=== PATIENT | male | born 1965 | race Caucasian/White ===

== ENCOUNTER 2016-10-02 17:23 | Inpatient (IN) | payer OTHER ==
[~2016-10-02] VITALS: Ht 180.3 cm; Wt 102.1 kg
[2016-10-02] VITALS (8 sets, daily range): BP systolic 106–122; BP diastolic 60–73
[2016-10-02] MEDS ORDERED: PANTOPRAZOLE IV PUSH 40 MG VIAL. IVP ONE (18:15)
[2016-10-02] MEDS ORDERED: PANTOPRAZOLE SODIUM IV 80 MG in IV NORMAL SALINE 100ML 100 ML IV SCH (18:15)
[2016-10-02] MEDS ORDERED: IV NORMAL SALINE 1000ML BAG 1,000 ML IV ONE (18:15)
[2016-10-02] MEDS ORDERED: PANTOPRAZOLE SODIUM IV 80 MG in IV NORMAL SALINE 100ML 100 ML IV ONE (18:15)
[2016-10-02 18:18] LABS: BASO # 0.1 x10^3/uL (0.0-0.2); BASO % 1 % (0-3); EOS % 4 % (0-3); HEMATOCRIT 24.5 % (39.0-53.0); HEMOGLOBIN 8.4 g/dL (13.0-17.5); LYMPH # 2.1 x10^3/uL (1.0-4.8); LYMPH % 19 % (24-48); MEAN CORPUSCULAR HEMOGLOBIN 33 pg (25-35); MEAN CORPUSCULAR HGB CONC 34 g/dL (31-37); MEAN CORPUSCULAR VOLUME 97 fL (79-100); MONO % 6 % (0-9); NEUT % 70 % (31-73); PLATELET COUNT 295 x10^3/uL (140-400); RED BLOOD COUNT 2.53 x10^6/uL (4.30-5.70); RED CELL DISTRIBUTION WIDTH 14.5 % (11.5-14.5); WHITE BLOOD COUNT 10.9 x10^3/uL (4.0-11.0)
[2016-10-02 18:33] LABS: CALCIUM 8.3 mg/dL (8.5-10.1); GFR 78.5; POTASSIUM 3.8 mmol/L (3.5-5.1)
[2016-10-02 18:34] LABS: NEG OBC FOB NEG; POS OBC FOB POS
[2016-10-02 18:39] LABS: ALBUMIN 2.1 g/dL (3.4-5.0); ALBUMIN/GLOBULIN RATIO 0.8 (1.0-1.7); TOTAL BILIRUBIN 0.8 mg/dL (0.2-1.0); TOTAL PROTEIN 4.9 g/dL (6.4-8.2)
[2016-10-02] MEDS ORDERED: ONDANSETRON PF 4 MG/2 ML VIAL. IV PRN (18:45)
--- NOTE | 2016-10-02 18:46 | PHYS DOC ---
Past Medical History Past Medical History: Kidney Stone, Seizure, Other Additional Past Medical Histor: gi bleed Past Surgical History: No Surgical History Alcohol Use: None Drug Use: None Adult General Chief Complaint Chief Complaint: LOSS OF CONSCIOUSNESS [facility] HPI 51-year-old male who presents from a correctional facility after having a full syncopal episode and falling and hitting the back of his head with a small laceration on his head. Upon my assessment, the patient has just had a very large dark bloody bowel movement. He feels very pale but no acute distress. He denies any significant chest pain or shortness of breath. He does state he has history of hepatitis but denies any history of variceal bleed. He reports very mild abdominal pain. He denies any history of stomach ulceration. He denies any recent alcohol use. Review of Systems Review of Systems Constitutional: Denies fever or chills [] Eyes: Denies change in visual acuity, redness, or eye pain [] HENT: Denies nasal congestion or sore throat [] Respiratory: Denies cough or shortness of breath [] Cardiovascular: No additional information not addressed in HPI [] GI: Denies abdominal pain, nausea, vomiting, has bloody stools, denies diarrhea [] : Denies dysuria or hematuria [] Musculoskeletal: Denies back pain or joint pain [] Integument: Denies rash or skin lesions [] Neurologic: Denies headache, focal weakness or sensory changes [] Endocrine: Denies polyuria or polydipsia [] Current Medications Current Medications Allergies Allergies Allergies Coded Allergies Type Severity Reaction Last Updated Verified No Known Drug Allergies 10/02/16 No Physical Exam Physical Exam Constitutional: Well developed, well nourished, no acute distress, non-toxic appearance. [] HENT: Normocephalic, small laceration to the occipital area that does not require any closure, no active bleeding noted, bilateral external ears normal, oropharynx moist, no oral exudates, nose normal. [] Eyes: PERRLA, EOMI, conjunctiva normal, no discharge. [] Neck: Normal range of motion, no tenderness, supple, no stridor. [] Cardiovascular:Heart rate regular rhythm, no murmur [] Lungs & Thorax: Bilateral breath sounds clear to auscultation [] Abdomen: Bowel sounds normal, soft, no tenderness, no masses, no pulsatile masses. [] Skin: Warm, dry, no erythema, no rash, pale. [] Back: No tenderness, no CVA tenderness. [] Extremities: No tenderness, no cyanosis, no clubbing, ROM intact, no edema. [] Neurologic: Alert and oriented X 3, normal motor function, normal sensory function, no focal deficits noted. [] Psychologic: Affect normal, judgement normal, mood normal. [] Current Patient Data Vital Signs Vital Signs Date Time Temp Pulse Resp B/P Pulse Ox O2 Delivery O2 Flow Rate FiO2 10/02/16 18:00 82 20 116/55 97 Room Air 10/02/16 17:25 97.9 97.9 Lab Values Laboratory Tests Test 10/02/16 17:45 10/02/16 17:46 10/02/16 18:00 White Blood Count 10.9x10^3/uL (4.0-11.0) Red Blood Count 2.53x10^6/uL (4.30-5.70) L Hemoglobin 8.4g/dL (13.0-17.5) L Hematocrit 24.5% (39.0-53.0) L Mean Corpuscular Volume 97fL (79-100) Mean Corpuscular Hemoglobin 33pg (25-35) Mean Corpuscular Hemoglobin Concent 34g/dL (31-37) Red Cell Distribution Width 14.5% (11.5-14.5) Platelet Count 295x10^3/uL (140-400) Neutrophils (%) (Auto) 70% (31-73) Lymphocytes (%) (Auto) 19% (24-48) L Monocytes (%) (Auto) 6% (0-9) Eosinophils (%) (Auto) 4% (0-3) H Basophils (%) (Auto) 1% (0-3) Neutrophils # (Auto) 7.6x10^3uL (1.8-7.7) Lymphocytes # (Auto) 2.1x10^3/uL (1.0-4.8) Monocytes # (Auto) 0.7x10^3/uL (0.0-1.1) Eosinophils # (Auto) 0.4x10^3/uL (0.0-0.7) Basophils # (Auto) 0.1x10^3/uL (0.0-0.2) Sodium Level 147mmol/L (136-145) H Potassium Level 3.8mmol/L (3.5-5.1) Chloride Level 113mmol/L (98-107) H Carbon Dioxide Level 25mmol/L (21-32) Anion Gap 9 (6-14) Blood Urea Nitrogen 34mg/dL (8-26) H Creatinine 1.0mg/dL (0.7-1.3) Estimated GFR (Cockcroft-Gault) 78.5 BUN/Creatinine Ratio 34 (6-20) H Glucose Level 148mg/dL (70-99) H Calcium Level 8.3mg/dL (8.5-10.1) L Total Bilirubin 0.8mg/dL (0.2-1.0) Aspartate Amino Transferase (AST) 35U/L (15-37) Alanine Aminotransferase (ALT) 37U/L (16-63) Alkaline Phosphatase 57U/L (46-116) Total Protein 4.9g/dL (6.4-8.2) L Albumin 2.1g/dL (3.4-5.0) L Albumin/Globulin Ratio 0.8 (1.0-1.7) L Prothrombin Time 18.3SEC (11.7-14.0) H Prothrombin Time INR 1.6 (0.8-1.1) H Stool Occult Blood Positive (NEG) Laboratory Tests 10/02/16 17:45 Laboratory Tests 10/02/16 17:45 EKG EKG EKG as interpreted by de shows a sinus rhythm with a rate of 76 bpm. There are no acute findings on this EKG. Radiology/Procedures Radiology/Procedures CT of the head without contrast demonstrates the following: No acute intracranial hemorrhage or midline shift or mass-effect or hydrocephalus or extra-axial fluid collection is seen. No focal hypodense area is seen to indicate an acute infarct or edema radiographically. No skull fracture or pneumocephalus is seen. No opacification of the mastoid sinuses or the paranasal sinuses is seen. The maxillary sinuses are not completely seen in this study. Course & Med Decision Making Course & Med Decision Making Pertinent Labs and Imaging studies reviewed. (See chart for details) This 51-year-old male with an ongoing GI bleed that was noted with a single episode just prior to arrival immediately had multiple IVs placed upon arrival. IV fluids were started and the patient was type and cross for 2 units. Protonix bolus was administered and Protonix drip was initiated. I discussed the case with the GI doctor, Dr. Herrera, who also requested we start the patient on octreotide. Octreotide bolus was given and an octreotide drip was initiated. Patient was actively transfused 1 unit in the department with multiple units still ready to be administered if needed. The patient maintained stable vital signs on the department. The rest of his laboratory workup was unremarkable. I discussed the need to admit the patient to the ICU with the hospitalist, Dr. Magaña, who agreed with this plan. Approximately 30 minutes of critical care time were used in consultation with specialists. Dragon Disclaimer Dragon Disclaimer This electronic medical record was generated, in whole or in part, using a voice recognition dictation system. Critical Care Time Critical care time was 30 minutes exclusive of procedures. Departure Departure Impression: Primary Impression: GI bleed Disposition: ADMITTED INPATIENT Admitting Physician: Desiree Magaña Condition: CRITICAL RAVINDRA YANEZ DO Oct 02, 2016 18:46
[2016-10-02] MEDS ORDERED: OCTREOTIDE 500 MCG in IV NORMAL SALINE 100ML 100 ML IV PRN (19:00)
--- NOTE | 2016-10-02 19:14 | RAD ---
PROCEDURE Noncontrast head CT HISTORY Fall. Laceration injury posteriorly. TECHNIQUE Noncontrast axial cross sectional CT scanning of the head was performed. One or more of the following individualized dose reduction techniques were utilized for this study: 1. Automated exposure control 2. Adjustment of the mA and/or kV according to patient size 3. Use of iterative reconstruction technique COMPARISON None available. FINDINGS No acute intracranial hemorrhage or midline shift or mass-effect or hydrocephalus or extra-axial fluid collection is seen. No focal hypodense area is seen to indicate an acute infarct or edema radiographically. No skull fracture or pneumocephalus is seen. No opacification of the mastoid sinuses or the paranasal sinuses is seen. The maxillary sinuses are not completely seen in this study. IMPRESSION No acute intracranial abnormality is seen. Electronically signed by: Manuel Manriquez MD (Oct 02, 2016 19:12:53)
[2016-10-02] MEDS ORDERED: OCTREOTIDE 100 MCG/ML VIAL SQ ONE (19:15)
[2016-10-02] MEDS ORDERED: DIPHTH,PERTUSS(ACELL),TET TOX 0.5 ML DISP.SYRIN. VAX IM ONE (19:15)
[2016-10-02] MEDS ORDERED: OCTREOTIDE 100 MCG/ML VIAL IV ONE (19:15)
[2016-10-02] MEDS: OCTREOTIDE 500 MCG in IV NORMAL SALINE 100ML 100 ML IV PRN (19:31)
[2016-10-02] MEDS: IV NORMAL SALINE 1000ML BAG 1,000 ML IV SCH (20:13)
--- NOTE | 2016-10-02 20:28 | PDOC1 ---
History and Physical Date of Admission Date of Admission DATE: 10/02/16 TIME: 20:25 Identification/Chief Complaint Chief Complaint syncope Source Source: Chart review, Patient History of Present Illness History of Present Illness Mr. Kaufman, is 51-year-old incarcerated male admit after syncopal episode. Fell and hit the back of his head, small laceration on his head. Patient was very pale on presentation, had a new very large dark bloody bowel movement. He feels very pale but no acute distress. He denies any significant chest pain or shortness of breath. He does state he has history of hepatitis C - no prior complications . He reports very mild abdominal pain. He denies any history of stomach ulceration. 5 years ago, before senior living, he drank 6 beers most days, sometimes more. . Past Medical History Cardiovascular: No pertinent hx Pulmonary: No pertinent hx GI: Other (hepatitis) Heme/Onc: No pertinent hx Musculoskeletal: low back pain Past Surgical History Past Surgical History: No pertinent history Family History Family History: No Significant Social History Smoke: No ALCOHOL: other Drugs: None Current Problem List Problem List Problems Medical Problems: (1) GI bleed Status: Acute Problems: Current Medications Current Medications Current Medications Sodium Chloride 1,000 ml @ 1,000 mls/hr 1X ONCE IV Last administered on 18:36; Start 10/02/16 at 18:15; Stop 10/02/16 at 19:14; Status DC Pantoprazole Sodium 80 mg/ Sodium Chloride 100 ml @ 10 mls/hr Q10H IV ; Start 10/02/16 at 18:15 Pantoprazole Sodium/Sodium Chloride (Protonix Iv/Iv Sodium Chloride 0.9% 100ml) 100 ml @ 10 mls/hr 1X ONCE IV Last administered on 10/02/16 18:29; Start at 18:15; Stop 10/03/16 at 04:14 Pantoprazole Sodium (Protonix Vial) 80 mg ONCE ONCE IVP ; Start 10/02/16 at 18: 15; Stop 10/02/16 at 18:16; Status Cancel Ondansetron HCl 4 mg 4 mg PRN Q8HRS PRN IV NAUSEA/VOMITING; Start 10/02/16 at 18:45; Stop 10/03/16 at 18:44 Sodium Chloride 1,000 ml @ 125 mls/hr Q8H IV Last administered on 10/02/16 20 :13; Start 10/02/16 at 19:00; Stop 10/03/16 at 18:59 Octreotide Acetate 500 mcg/ Sodium Chloride 101 ml @ 10.1 mls/hr CONT PRN IV SEE I/O RECORD Last administered on 10/02/16 19:31; Start 10/02/16 at 19:00 Octreotide Acetate/Sodium Chloride (Sandostatin/Iv Sodium Chloride 0.9% 100ml) 101 ml @ 0 mls/hr CONT PRN IV SEE I/O RECORD; Start 10/02/16 at 19:00; Status UNV Octreotide Acetate (Sandostatin) 100 mcg ONCE ONCE SQ ; Start 10/02/16 at 19:15 ; Stop 10/02/16 at 19:16; Status Cancel Diphtheria/ Tetanus/Acell Pertussis (Boostrix) 0.5 ml ONCE ONCE VAX IM Last administered on 10/02/16 20:17; Start 10/02/16 at 19:15; Stop 10/02/16 at 19:17 ; Status DC Octreotide Acetate (Sandostatin) 100 mcg ONCE ONCE IV Last administered on 19:30; Start 10/02/16 at 19:15; Stop 10/02/16 at 19:18; Status DC Allergies Allergies: Coded Allergies: No Known Drug Allergies (Unverified , 10/02/16) ROS General: YES: Fatigue, Malaise, No: Appetite, Chills, Night Sweats, Other PSYCHOLOGICAL ROS: No: Anxiety, Behavioral Disorder, Concentration difficultie , Decreased libido, Depression, Disorientation, Hallucinations, Hostility, Irritablity, Memory difficulties, Mood Swings, Obsessive thoughts, Other, Physical abuse, Sexual abuse, Sleep disturbances, Suicidal ideation Respiratory: No: Cough, Hemoptysis, Orthopnea, Other, Pleuritic Pain, SOB with excertion, Shortness of breath, Sputum Changes, Stridor, Tachypnea, Wheezing Cardiovascular: No Chest Pain, No Edema, No Lt Headedness, No Orthopnea, No Other, No Palpitations, No Paroxysmal Noc. Dyspnea Gastrointestinal: No Abdominal Pain, No Constipation, No Diarrhea, No Hematochezia, No Melena, No Nausea, No Other, No Vomiting Genitourinary: No , No , No , No , No , No , No , No Discharge, No Dysuria, No Flank Pain, No Frequency, No Hematuria, No Incontinence, No Other, No Pain, No Retention, No Urgency Musculoskeletal: No Gait Disturbance, No Joint Pain, No Joint Stiffness, No Joint Swelling, No Muscle Pain, No Muscular Weakness, No Other, No Pain In:, No Swelling In: Neurological: No Behavorial Changes, No Bowel/Bladder ControlChng, No Confusion , No Dizziness, No Gait Disturbance, No Headaches, No Impaired Coord/balance, No Memory Loss, No Numbness/Tingling, No Other, No Seizures, No Speech Problems , No Tremors, No Visual Changes, No Weakness Skin: No Acne, No Dry Skin, No Eczema, No Hair Changes, No Lumps, No Mole Changes, No Mottling, No Nail Changes, No Other, No Pruritus, No Rash, No Skin Lesion Changes Physical Exam General: Alert, Oriented X3, Cooperative, mild distress HEENT: Atraumatic Lungs: Clear to auscultation Heart: no murmurs Abdomen: Normal bowel sounds, Soft Rectal Exam: other (melena reported, heme+) Extremities: No clubbing, No cyanosis, No edema, Normal pulses Skin: No rashes, No breakdown Neuro: Normal speech, Normal tone, Sensation intact, Cranial nerves 3-12 NL Psych/Mental Status: Mental status NL, Mood NL Vitals Vitals Vital Signs Date Time Temp Pulse Resp B/P Pulse Ox O2 Delivery O2 Flow Rate FiO2 10/02/16 20:09 97.5 82 20 106/67 97.5 10/02/16 17:25 98 Room Air Labs Labs Laboratory Tests Test 10/02/16 17:45 10/02/16 18:00 White Blood Count 10.9x10^3/uL (4.0-11.0) Red Blood Count 2.53x10^6/uL (4.30-5.70) Hemoglobin 8.4g/dL (13.0-17.5) Hematocrit 24.5% (39.0-53.0) Mean Corpuscular Volume 97fL (79-100) Mean Corpuscular Hemoglobin 33pg (25-35) Mean Corpuscular Hemoglobin Concent 34g/dL (31-37) Red Cell Distribution Width 14.5% (11.5-14.5) Platelet Count 295x10^3/uL (140-400) Neutrophils (%) (Auto) 70% (31-73) Lymphocytes (%) (Auto) 19% (24-48) Monocytes (%) (Auto) 6% (0-9) Eosinophils (%) (Auto) 4% (0-3) Basophils (%) (Auto) 1% (0-3) Neutrophils # (Auto) 7.6x10^3uL (1.8-7.7) Lymphocytes # (Auto) 2.1x10^3/uL (1.0-4.8) Monocytes # (Auto) 0.7x10^3/uL (0.0-1.1) Eosinophils # (Auto) 0.4x10^3/uL (0.0-0.7) Basophils # (Auto) 0.1x10^3/uL (0.0-0.2) Sodium Level 147mmol/L (136-145) Potassium Level 3.8mmol/L (3.5-5.1) Chloride Level 113mmol/L (98-107) Carbon Dioxide Level 25mmol/L (21-32) Anion Gap 9 (6-14) Blood Urea Nitrogen 34mg/dL (8-26) Creatinine 1.0mg/dL (0.7-1.3) Estimated GFR (Cockcroft-Gault) 78.5 BUN/Creatinine Ratio 34 (6-20) Glucose Level 148mg/dL (70-99) Calcium Level 8.3mg/dL (8.5-10.1) Total Bilirubin 0.8mg/dL (0.2-1.0) Aspartate Amino Transf (AST/SGOT) 35U/L (15-37) Alanine Aminotransferase (ALT/SGPT) 37U/L (16-63) Alkaline Phosphatase 57U/L (46-116) Total Protein 4.9g/dL (6.4-8.2) Albumin 2.1g/dL (3.4-5.0) Albumin/Globulin Ratio 0.8 (1.0-1.7) Stool Occult Blood Positive (NEG) Laboratory Tests Test 10/02/16 17:45 10/02/16 18:00 White Blood Count 10.9x10^3/uL (4.0-11.0) Red Blood Count 2.53x10^6/uL (4.30-5.70) Hemoglobin 8.4g/dL (13.0-17.5) Hematocrit 24.5% (39.0-53.0) Mean Corpuscular Volume 97fL (79-100) Mean Corpuscular Hemoglobin 33pg (25-35) Mean Corpuscular Hemoglobin Concent 34g/dL (31-37) Red Cell Distribution Width 14.5% (11.5-14.5) Platelet Count 295x10^3/uL (140-400) Neutrophils (%) (Auto) 70% (31-73) Lymphocytes (%) (Auto) 19% (24-48) Monocytes (%) (Auto) 6% (0-9) Eosinophils (%) (Auto) 4% (0-3) Basophils (%) (Auto) 1% (0-3) Neutrophils # (Auto) 7.6x10^3uL (1.8-7.7) Lymphocytes # (Auto) 2.1x10^3/uL (1.0-4.8) Monocytes # (Auto) 0.7x10^3/uL (0.0-1.1) Eosinophils # (Auto) 0.4x10^3/uL (0.0-0.7) Basophils # (Auto) 0.1x10^3/uL (0.0-0.2) Sodium Level 147mmol/L (136-145) Potassium Level 3.8mmol/L (3.5-5.1) Chloride Level 113mmol/L (98-107) Carbon Dioxide Level 25mmol/L (21-32) Anion Gap 9 (6-14) Blood Urea Nitrogen 34mg/dL (8-26) Creatinine 1.0mg/dL (0.7-1.3) Estimated GFR (Cockcroft-Gault) 78.5 BUN/Creatinine Ratio 34 (6-20) Glucose Level 148mg/dL (70-99) Calcium Level 8.3mg/dL (8.5-10.1) Total Bilirubin 0.8mg/dL (0.2-1.0) Aspartate Amino Transf (AST/SGOT) 35U/L (15-37) Alanine Aminotransferase (ALT/SGPT) 37U/L (16-63) Alkaline Phosphatase 57U/L (46-116) Total Protein 4.9g/dL (6.4-8.2) Albumin 2.1g/dL (3.4-5.0) Albumin/Globulin Ratio 0.8 (1.0-1.7) Stool Occult Blood Positive (NEG) VTE Prophylaxis Ordered VTE Prophylaxis Devices: Yes VTE Pharmacological Prophylaxi: Contraindicated Assessment/Plan Assessment/Plan GI bleed, acute blood loss anemia Possible Upper GI bleed, melena BUN elevation PPI, octreotide, 2 u PRBC, admit to ICU Hx hep C, given SQ vit K now check INR prior EtOH abuse 6/day or more INR 1.6 VIt K given 2 SQ now mod/severe malnutrition, hypoalbumin currently incarcerated, he reports release date 6 mos full code admit to ICU pt seen in ER ALLISON JUNG MD Oct 02, 2016 20:28
[2016-10-02] MEDS ORDERED: PHYTONADIONE 10 MG/ML AMPUL. SQ ONE (20:30)
[2016-10-02 20:45] LABS: INR 1.6 (0.8-1.1); PROTHROMBIN TIME PATIENT 18.3 SEC (11.7-14.0)
[2016-10-02] MEDS ORDERED: IBUP200T77 PO (22:52)
[2016-10-02] MEDS ORDERED: TRIA1TAB3 PO (22:52)
[2016-10-03] VITALS (21 sets, daily range): BP systolic 91–115; BP diastolic 41–68
[2016-10-03 02:22] LABS: BASO # 0.1 x10^3/uL (0.0-0.2); BASO % 1 % (0-3); EOS % 2 % (0-3); HEMATOCRIT 28.8 % (39.0-53.0); HEMOGLOBIN 9.8 g/dL (13.0-17.5); LYMPH # 1.4 x10^3/uL (1.0-4.8); LYMPH % 17 % (24-48); MEAN CORPUSCULAR HEMOGLOBIN 32 pg (25-35); MEAN CORPUSCULAR HGB CONC 34 g/dL (31-37); MEAN CORPUSCULAR VOLUME 94 fL (79-100); MONO % 6 % (0-9); NEUT % 74 % (31-73); PLATELET COUNT 215 x10^3/uL (140-400); RED BLOOD COUNT 3.07 x10^6/uL (4.30-5.70); RED CELL DISTRIBUTION WIDTH 15.5 % (11.5-14.5); WHITE BLOOD COUNT 8.3 x10^3/uL (4.0-11.0)
[2016-10-03] MEDS ORDERED: INFLUENZA VAX SCREEN BY RX. MC ONE (02:45)
[2016-10-03 02:59] LABS: GFR 78.5; POTASSIUM 4.7 mmol/L (3.5-5.1)
[2016-10-03] MEDS: IV NORMAL SALINE 1000ML BAG 1,000 ML IV SCH (03:00)
--- NOTE | 2016-10-03 07:47 | EKG ---
[facility] [address] [place] [address] Test Date: 2016-10-02 Test Time: 17:36:22 Pat Name: BLU LUIS Department: Room: Gender: M Bunch Maker: : 1965 Requested By: RAVINDRA YANEZ Order Number: [id number] Reading MD: Measurements Intervals [place] Rate: 76 P: 42 OK: 134 QRS: 16 QRSD: 80 T: 34 QT: 416 QTc: 473 Interpretive Statements SINUS RHYTHM NORMAL ECG RI6.01 No previous ECG available for comparison
[2016-10-03 08:27] LABS: HEMATOCRIT 25.5 % (39.0-53.0)
[2016-10-03] MEDS ORDERED: FLU VACC QUAD 2016-17 (36MOS+)/PF 0.5 ML SYRINGE. VAX IM ONE (09:00)
--- NOTE | 2016-10-03 09:37 | PDOC2 ---
GI CONSULT Reason For Consult: GI Bleed HPI: HPI: 51 y/o male from correctional facility brought to ER after syncopal episode where he fell and hit the back of his head. Noted to be pale, had large dark bloody stool in ER. Labs: Hgb 8.4 (to 9.8 s/p transfusion 2 units, now 9), plt 215, INR 1.6, BUN 34, Cr 1, hemoccult positive. Head CT unrevealing. Some hypotension. Reports h/o dark ("black") stools x 2 days. No abd pain, no n/v. Did have some CP w/ SOA and sweats a couple nights ago. No dizziness. H/o heartburn that hasn't been bothersome in awhile. Previous colonoscopy reportedly showed polyps in 2014. No previous EGD. Has been taking either ibuprofen or Tylenol for back pain - 3 pills BID for about 5 days. Additional h/o Hep C. Per RN, reports of black tarry stools x 2 overnight in ICU, no bleeding this a.m. On octreotide and PPI drip. PMH: PMH: Hep C, colon polyp, back pain, nephrolithiasis FH: Family History: Cancer (aunt had liver cancer) Social History: Smoke: No ALCOHOL: other (in the past) Drugs: Crystal meth (in the past) ROS: GEN: Denies fevers, chills, sweats HEENT: Denies blurred vision, sore throat CV: chest pain a few nights ago RESP: SOA a few nights ago GI: Per HPI : Denies hematuria, dysuria ENDO: Denies weight changes NEURO: syncope MSK:back pain, abrasion back of head SKIN: Denies jaundice, pruritus VItals: Vitals: Vital Signs Date Time Temp Pulse Resp B/P Pulse Ox O2 Delivery O2 Flow Rate FiO2 10/03/16 08:00 98.0 74 9 99/54 98 Room Air 98.0 Labs: Labs: Laboratory Tests Test 10/02/16 17:45 10/02/16 17:46 10/02/16 18:00 10/03/16 01:58 White Blood Count 10.9x10^3/uL (4.0-11.0) 8.3x10^3/uL (4.0-11.0) Red Blood Count 2.53x10^6/uL (4.30-5.70) 3.07x10^6/uL (4.30-5.70) Hemoglobin 8.4g/dL (13.0-17.5) 9.8g/dL (13.0-17.5) Hematocrit 24.5% (39.0-53.0) 28.8% (39.0-53.0) Mean Corpuscular Volume 97fL (79-100) 94fL (79-100) Mean Corpuscular Hemoglobin 33pg (25-35) 32pg (25-35) Mean Corpuscular Hemoglobin Concent 34g/dL (31-37) 34g/dL (31-37) Red Cell Distribution Width 14.5% (11.5-14.5) 15.5% (11.5-14.5) Platelet Count 295x10^3/uL (140-400) 215x10^3/uL (140-400) Neutrophils (%) (Auto) 70% (31-73) 74% (31-73) Lymphocytes (%) (Auto) 19% (24-48) 17% (24-48) Monocytes (%) (Auto) 6% (0-9) 6% (0-9) Eosinophils (%) (Auto) 4% (0-3) 2% (0-3) Basophils (%) (Auto) 1% (0-3) 1% (0-3) Neutrophils # (Auto) 7.6x10^3uL (1.8-7.7) 6.1x10^3uL (1.8-7.7) Lymphocytes # (Auto) 2.1x10^3/uL (1.0-4.8) 1.4x10^3/uL (1.0-4.8) Monocytes # (Auto) 0.7x10^3/uL (0.0-1.1) 0.5x10^3/uL (0.0-1.1) Eosinophils # (Auto) 0.4x10^3/uL (0.0-0.7) 0.2x10^3/uL (0.0-0.7) Basophils # (Auto) 0.1x10^3/uL (0.0-0.2) 0.1x10^3/uL (0.0-0.2) Sodium Level 147mmol/L (136-145) 144mmol/L (136-145) Potassium Level 3.8mmol/L (3.5-5.1) 4.7mmol/L (3.5-5.1) Chloride Level 113mmol/L (98-107) 115mmol/L (98-107) Carbon Dioxide Level 25mmol/L (21-32) 23mmol/L (21-32) Anion Gap 9 (6-14) 6 (6-14) Blood Urea Nitrogen 34mg/dL (8-26) 34mg/dL (8-26) Creatinine 1.0mg/dL (0.7-1.3) 1.0mg/dL (0.7-1.3) Estimated GFR (Cockcroft-Gault) 78.5 78.5 BUN/Creatinine Ratio 34 (6-20) Glucose Level 148mg/dL (70-99) 118mg/dL (70-99) Calcium Level 8.3mg/dL (8.5-10.1) 8.0mg/dL (8.5-10.1) Total Bilirubin 0.8mg/dL (0.2-1.0) Aspartate Amino Transf (AST/SGOT) 35U/L (15-37) Alanine Aminotransferase (ALT/SGPT) 37U/L (16-63) Alkaline Phosphatase 57U/L (46-116) Total Protein 4.9g/dL (6.4-8.2) Albumin 2.1g/dL (3.4-5.0) Albumin/Globulin Ratio 0.8 (1.0-1.7) Prothrombin Time 18.3SEC (11.7-14.0) Prothromb Time International Ratio 1.6 (0.8-1.1) Stool Occult Blood Positive (NEG) Test 10/03/16 08:10 Hemoglobin 9.0g/dL (13.0-17.5) Hematocrit 25.5% (39.0-53.0) Mean Corpuscular Hemoglobin Concent 35g/dL (31-37) Allergies: Coded Allergies: No Known Drug Allergies (Unverified , 10/02/16) Medications: Current Medications Medications (Trade) Dose Ordered Sig/Katarzyna Route PRN Reason Start Time Stop Time Status Last Admin Dose Admin Sodium Chloride 1,000 ml @ 1,000 mls/hr 1X ONCE IV 10/02/16 18:15 10/02/16 19:14 DC 10/02/16 18:36 Pantoprazole Sodium 80 mg/ Sodium Chloride 100 ml @ 10 mls/hr Q10H IV 10/02/16 18:15 10/03/16 04:08 Pantoprazole Sodium 80 mg/ Sodium Chloride 100 ml @ 10 mls/hr 1X ONCE IV 10/02/16 18:15 10/03/16 04:14 DC 10/02/16 18:29 Sodium Chloride 1,000 ml @ 125 mls/hr Q8H IV 10/02/16 19:00 10/03/16 18:59 10/02/16 20:13 Octreotide Acetate/Sodium Chloride (Sandostatin/Iv Sodium Chloride 0.9% 100ml) 101 ml @ 10.1 mls/hr CONT PRN IV SEE I/O RECORD 10/02/16 19:00 10/02/16 19:31 Diphtheria/ Tetanus/Acell Pertussis (Boostrix) 0.5 ml ONCE ONCE VAX IM 10/02/16 19:15 10/02/16 19:17 DC 10/02/16 20:17 Octreotide Acetate (Sandostatin) 100 mcg ONCE ONCE IV 10/02/16 19:15 10/02/16 19:18 DC 10/02/16 19:30 Phytonadione (Vitamin K) 2 mg 1X ONCE SQ 10/02/16 20:30 10/02/16 20:31 DC 10/02/16 20:30 Imaging: Imaging: Head CT IMPRESSION No acute intracranial abnormality is seen. PE: GEN: NAD HEENT: PERRL LUNGS: CTAB anteriorly HEART: RRR +murm ABD: NABS, S/ND/NT EXTREMITY: No edema SKIN: small abrasion back of head NEURO/PSYCH: A & O 3 A/P: A/P: Melena, anemia -onset 2 days ago, dark blood/black tarry stools per staff -Hgb now 9 s/p transfusion 2 units -on octreotide and PPI drip Syncope Hep C -LFTs WNL H/o heartburn -no longer bothersome, no previous EGD CRC screen, h/o polyps -colonoscopy 2014 ?NSAID use -recently for back pain -- EGD later this morning r/o upper GI source including varices, PUD. Continue NPO, octreotide, PPI til then. D/w pt, Dr. Herrera, GI lab. LEONA MANCUSO Oct 03, 2016 09:37
[2016-10-03] MEDS ORDERED: IV RINGERS,LACTATED 1000ML 1,000 ML IV SCH ×2 (13:34→13:45)
--- NOTE | 2016-10-03 13:52 | PDOC ---
PROGRESS NOTES Chief Complaint Chief Complaint syncope, 2/2 hypovolemia likely GI bleed, acute blood loss anemia, likely UGIB FROM fdc Hx hep C mod/severe malnutrition GERD plan: GI consulted egd today on protonix and octreotide drip for now npo got 2u PRBC transfusion on 10/02 ivf labs tmr History of Present Illness History of Present Illness got 2u PRBC, now HB still low at 9 EGD today Vitals Vitals Vital Signs Date Time Temp Pulse Resp B/P Pulse Ox O2 Delivery O2 Flow Rate FiO2 10/03/16 13:40 99.3 71 18 100 99.3 10/03/16 13:40 Room Air 10/03/16 12:00 108/58 Physical Exam General: Alert, Oriented X3, Cooperative, mild distress Heart: Regular rate Lungs: Clear Abdomen: Normal bowel sounds, Soft, No tenderness Extremities: No clubbing, No cyanosis, No edema, Normal pulses Skin: No rashes, No breakdown Labs LABS Laboratory Tests Test 10/02/16 17:45 10/02/16 17:46 10/02/16 18:00 10/03/16 01:58 White Blood Count 10.9x10^3/uL (4.0-11.0) 8.3x10^3/uL (4.0-11.0) Red Blood Count 2.53x10^6/uL (4.30-5.70) 3.07x10^6/uL (4.30-5.70) Hemoglobin 8.4g/dL (13.0-17.5) 9.8g/dL (13.0-17.5) Hematocrit 24.5% (39.0-53.0) 28.8% (39.0-53.0) Mean Corpuscular Volume 97fL (79-100) 94fL (79-100) Mean Corpuscular Hemoglobin 33pg (25-35) 32pg (25-35) Mean Corpuscular Hemoglobin Concent 34g/dL (31-37) 34g/dL (31-37) Red Cell Distribution Width 14.5% (11.5-14.5) 15.5% (11.5-14.5) Platelet Count 295x10^3/uL (140-400) 215x10^3/uL (140-400) Neutrophils (%) (Auto) 70% (31-73) 74% (31-73) Lymphocytes (%) (Auto) 19% (24-48) 17% (24-48) Monocytes (%) (Auto) 6% (0-9) 6% (0-9) Eosinophils (%) (Auto) 4% (0-3) 2% (0-3) Basophils (%) (Auto) 1% (0-3) 1% (0-3) Neutrophils # (Auto) 7.6x10^3uL (1.8-7.7) 6.1x10^3uL (1.8-7.7) Lymphocytes # (Auto) 2.1x10^3/uL (1.0-4.8) 1.4x10^3/uL (1.0-4.8) Monocytes # (Auto) 0.7x10^3/uL (0.0-1.1) 0.5x10^3/uL (0.0-1.1) Eosinophils # (Auto) 0.4x10^3/uL (0.0-0.7) 0.2x10^3/uL (0.0-0.7) Basophils # (Auto) 0.1x10^3/uL (0.0-0.2) 0.1x10^3/uL (0.0-0.2) Sodium Level 147mmol/L (136-145) 144mmol/L (136-145) Potassium Level 3.8mmol/L (3.5-5.1) 4.7mmol/L (3.5-5.1) Chloride Level 113mmol/L (98-107) 115mmol/L (98-107) Carbon Dioxide Level 25mmol/L (21-32) 23mmol/L (21-32) Anion Gap 9 (6-14) 6 (6-14) Blood Urea Nitrogen 34mg/dL (8-26) 34mg/dL (8-26) Creatinine 1.0mg/dL (0.7-1.3) 1.0mg/dL (0.7-1.3) Estimated GFR (Cockcroft-Gault) 78.5 78.5 BUN/Creatinine Ratio 34 (6-20) Glucose Level 148mg/dL (70-99) 118mg/dL (70-99) Calcium Level 8.3mg/dL (8.5-10.1) 8.0mg/dL (8.5-10.1) Total Bilirubin 0.8mg/dL (0.2-1.0) Aspartate Amino Transf (AST/SGOT) 35U/L (15-37) Alanine Aminotransferase (ALT/SGPT) 37U/L (16-63) Alkaline Phosphatase 57U/L (46-116) Total Protein 4.9g/dL (6.4-8.2) Albumin 2.1g/dL (3.4-5.0) Albumin/Globulin Ratio 0.8 (1.0-1.7) Prothrombin Time 18.3SEC (11.7-14.0) Prothromb Time International Ratio 1.6 (0.8-1.1) Stool Occult Blood Positive (NEG) Test 10/03/16 08:10 Hemoglobin 9.0g/dL (13.0-17.5) Hematocrit 25.5% (39.0-53.0) Mean Corpuscular Hemoglobin Concent 35g/dL (31-37) Review of Systems Review of Systems no fever, chills, sob or chest pain Assessment and Plan Assessmemt and Plan Problems Medical Problems: (1) GI bleed Status: Acute Problems: Comment Review of Relevant I have reviewed the following items telma (where applicable) has been applied. Labs Laboratory Tests Test 10/02/16 17:45 10/02/16 17:46 10/02/16 18:00 10/03/16 01:58 White Blood Count 10.9x10^3/uL (4.0-11.0) 8.3x10^3/uL (4.0-11.0) Red Blood Count 2.53x10^6/uL (4.30-5.70) 3.07x10^6/uL (4.30-5.70) Hemoglobin 8.4g/dL (13.0-17.5) 9.8g/dL (13.0-17.5) Hematocrit 24.5% (39.0-53.0) 28.8% (39.0-53.0) Mean Corpuscular Volume 97fL (79-100) 94fL (79-100) Mean Corpuscular Hemoglobin 33pg (25-35) 32pg (25-35) Mean Corpuscular Hemoglobin Concent 34g/dL (31-37) 34g/dL (31-37) Red Cell Distribution Width 14.5% (11.5-14.5) 15.5% (11.5-14.5) Platelet Count 295x10^3/uL (140-400) 215x10^3/uL (140-400) Neutrophils (%) (Auto) 70% (31-73) 74% (31-73) Lymphocytes (%) (Auto) 19% (24-48) 17% (24-48) Monocytes (%) (Auto) 6% (0-9) 6% (0-9) Eosinophils (%) (Auto) 4% (0-3) 2% (0-3) Basophils (%) (Auto) 1% (0-3) 1% (0-3) Neutrophils # (Auto) 7.6x10^3uL (1.8-7.7) 6.1x10^3uL (1.8-7.7) Lymphocytes # (Auto) 2.1x10^3/uL (1.0-4.8) 1.4x10^3/uL (1.0-4.8) Monocytes # (Auto) 0.7x10^3/uL (0.0-1.1) 0.5x10^3/uL (0.0-1.1) Eosinophils # (Auto) 0.4x10^3/uL (0.0-0.7) 0.2x10^3/uL (0.0-0.7) Basophils # (Auto) 0.1x10^3/uL (0.0-0.2) 0.1x10^3/uL (0.0-0.2) Sodium Level 147mmol/L (136-145) 144mmol/L (136-145) Potassium Level 3.8mmol/L (3.5-5.1) 4.7mmol/L (3.5-5.1) Chloride Level 113mmol/L (98-107) 115mmol/L (98-107) Carbon Dioxide Level 25mmol/L (21-32) 23mmol/L (21-32) Anion Gap 9 (6-14) 6 (6-14) Blood Urea Nitrogen 34mg/dL (8-26) 34mg/dL (8-26) Creatinine 1.0mg/dL (0.7-1.3) 1.0mg/dL (0.7-1.3) Estimated GFR (Cockcroft-Gault) 78.5 78.5 BUN/Creatinine Ratio 34 (6-20) Glucose Level 148mg/dL (70-99) 118mg/dL (70-99) Calcium Level 8.3mg/dL (8.5-10.1) 8.0mg/dL (8.5-10.1) Total Bilirubin 0.8mg/dL (0.2-1.0) Aspartate Amino Transf (AST/SGOT) 35U/L (15-37) Alanine Aminotransferase (ALT/SGPT) 37U/L (16-63) Alkaline Phosphatase 57U/L (46-116) Total Protein 4.9g/dL (6.4-8.2) Albumin 2.1g/dL (3.4-5.0) Albumin/Globulin Ratio 0.8 (1.0-1.7) Prothrombin Time 18.3SEC (11.7-14.0) Prothromb Time International Ratio 1.6 (0.8-1.1) Stool Occult Blood Positive (NEG) Test 10/03/16 08:10 Hemoglobin 9.0g/dL (13.0-17.5) Hematocrit 25.5% (39.0-53.0) Mean Corpuscular Hemoglobin Concent 35g/dL (31-37) Laboratory Tests Test 10/02/16 17:45 10/02/16 17:46 10/02/16 18:00 10/03/16 01:58 White Blood Count 10.9x10^3/uL (4.0-11.0) 8.3x10^3/uL (4.0-11.0) Red Blood Count 2.53x10^6/uL (4.30-5.70) 3.07x10^6/uL (4.30-5.70) Hemoglobin 8.4g/dL (13.0-17.5) 9.8g/dL (13.0-17.5) Hematocrit 24.5% (39.0-53.0) 28.8% (39.0-53.0) Mean Corpuscular Volume 97fL (79-100) 94fL (79-100) Mean Corpuscular Hemoglobin 33pg (25-35) 32pg (25-35) Mean Corpuscular Hemoglobin Concent 34g/dL (31-37) 34g/dL (31-37) Red Cell Distribution Width 14.5% (11.5-14.5) 15.5% (11.5-14.5) Platelet Count 295x10^3/uL (140-400) 215x10^3/uL (140-400) Neutrophils (%) (Auto) 70% (31-73) 74% (31-73) Lymphocytes (%) (Auto) 19% (24-48) 17% (24-48) Monocytes (%) (Auto) 6% (0-9) 6% (0-9) Eosinophils (%) (Auto) 4% (0-3) 2% (0-3) Basophils (%) (Auto) 1% (0-3) 1% (0-3) Neutrophils # (Auto) 7.6x10^3uL (1.8-7.7) 6.1x10^3uL (1.8-7.7) Lymphocytes # (Auto) 2.1x10^3/uL (1.0-4.8) 1.4x10^3/uL (1.0-4.8) Monocytes # (Auto) 0.7x10^3/uL (0.0-1.1) 0.5x10^3/uL (0.0-1.1) Eosinophils # (Auto) 0.4x10^3/uL (0.0-0.7) 0.2x10^3/uL (0.0-0.7) Basophils # (Auto) 0.1x10^3/uL (0.0-0.2) 0.1x10^3/uL (0.0-0.2) Sodium Level 147mmol/L (136-145) 144mmol/L (136-145) Potassium Level 3.8mmol/L (3.5-5.1) 4.7mmol/L (3.5-5.1) Chloride Level 113mmol/L (98-107) 115mmol/L (98-107) Carbon Dioxide Level 25mmol/L (21-32) 23mmol/L (21-32) Anion Gap 9 (6-14) 6 (6-14) Blood Urea Nitrogen 34mg/dL (8-26) 34mg/dL (8-26) Creatinine 1.0mg/dL (0.7-1.3) 1.0mg/dL (0.7-1.3) Estimated GFR (Cockcroft-Gault) 78.5 78.5 BUN/Creatinine Ratio 34 (6-20) Glucose Level 148mg/dL (70-99) 118mg/dL (70-99) Calcium Level 8.3mg/dL (8.5-10.1) 8.0mg/dL (8.5-10.1) Total Bilirubin 0.8mg/dL (0.2-1.0) Aspartate Amino Transf (AST/SGOT) 35U/L (15-37) Alanine Aminotransferase (ALT/SGPT) 37U/L (16-63) Alkaline Phosphatase 57U/L (46-116) Total Protein 4.9g/dL (6.4-8.2) Albumin 2.1g/dL (3.4-5.0) Albumin/Globulin Ratio 0.8 (1.0-1.7) Prothrombin Time 18.3SEC (11.7-14.0) Prothromb Time International Ratio 1.6 (0.8-1.1) Stool Occult Blood Positive (NEG) Test 10/03/16 08:10 Hemoglobin 9.0g/dL (13.0-17.5) Hematocrit 25.5% (39.0-53.0) Mean Corpuscular Hemoglobin Concent 35g/dL (31-37) Medications Current Medications Sodium Chloride 1,000 ml @ 1,000 mls/hr 1X ONCE IV Last administered on 18:36; Start 10/02/16 at 18:15; Stop 10/02/16 at 19:14; Status DC Pantoprazole Sodium 80 mg/ Sodium Chloride 100 ml @ 10 mls/hr Q10H IV Last administered on 10/03/16 04:08; Start 10/02/16 at 18:15 Pantoprazole Sodium/Sodium Chloride (Protonix Iv/Iv Sodium Chloride 0.9% 100ml) 100 ml @ 10 mls/hr 1X ONCE IV Last administered on 10/02/16 18:29; Start at 18:15; Stop 10/03/16 at 04:14; Status DC Pantoprazole Sodium (Protonix Vial) 80 mg ONCE ONCE IVP ; Start 10/02/16 at 18: 15; Stop 10/02/16 at 18:16; Status Cancel Ondansetron HCl 4 mg 4 mg PRN Q8HRS PRN IV NAUSEA/VOMITING; Start 10/02/16 at 18:45; Stop 10/03/16 at 18:44 Sodium Chloride 1,000 ml @ 125 mls/hr Q8H IV Last administered on 10/03/16 03 :00; Start 10/02/16 at 19:00; Stop 10/03/16 at 18:59 Octreotide Acetate 500 mcg/ Sodium Chloride 101 ml @ 10.1 mls/hr CONT PRN IV SEE I/O RECORD Last administered on 10/02/16 19:31; Start 10/02/16 at 19:00 Octreotide Acetate/Sodium Chloride (Sandostatin/Iv Sodium Chloride 0.9% 100ml) 101 ml @ 0 mls/hr CONT PRN IV SEE I/O RECORD; Start 10/02/16 at 19:00; Status UNV Octreotide Acetate (Sandostatin) 100 mcg ONCE ONCE SQ ; Start 10/02/16 at 19:15 ; Stop 10/02/16 at 19:16; Status Cancel Diphtheria/ Tetanus/Acell Pertussis (Boostrix) 0.5 ml ONCE ONCE VAX IM Last administered on 10/02/16 20:17; Start 10/02/16 at 19:15; Stop 10/02/16 at 19:17 ; Status DC Octreotide Acetate (Sandostatin) 100 mcg ONCE ONCE IV Last administered on 19:30; Start 10/02/16 at 19:15; Stop 10/02/16 at 19:18; Status DC Phytonadione (Vitamin K) 2 mg 1X ONCE SQ Last administered on 10/02/16 20:30 ; Start 10/02/16 at 20:30; Stop 10/02/16 at 20:31; Status DC Info (Do NOT chart on this placeholder) 1 each 1X ONCE MC ; Start 10/03/16 at 02:45; Stop 10/03/16 at 02:46; Status UNV Influenza Virus Vaccine Quadrival 0.5 ml 0.5 ml ONCE ONCE VAX IM ; Start at 09:00; Stop 10/03/16 at 09:01; Status DC Lactated Ringer's 1,000 ml @ 50 mls/hr Q20H IV Last administered on 10/03/16t 13:47; Start 10/03/16 at 13:34; Stop 10/04/16 at 01:33 Lactated Ringer's (Iv Lactated Ringers) 1,000 ml @ 0 mls/hr Q0M IV ; Start at 13:45; Status UNV Active Scripts Active Reported Ibuprofen 200 Mg Tablet 200 Mg PO PRN Q6HRS PRN Triamterene-Hctz 37.5-25 Mg Tb (Triamterene/Hydrochlorothiazid) 1 Each Tablet 1 Tab PO DAILY Vitals/I & O Vital Sign - Last 24 Hours 10/02/16 10/02/16 10/02/16 10/02/16 17:25 18:00 18:30 19:09 Temp 97.9 97.9 Pulse 96 82 76 70 Resp 18 20 18 18 B/P 99/58 116/55 111/64 111/63 Pulse Ox 98 97 97 100 O2 Delivery Room Air Room Air Room Air Room Air 10/02/16 10/02/16 10/02/16 10/02/16 19:20 19:40 20:00 20:07 Pulse 72 74 74 62 Resp 18 20 18 18 B/P 114/63 127/59 104/61 106/67 Pulse Ox 100 100 99 100 O2 Delivery Room Air Room Air Room Air Room Air 10/02/16 10/02/16 10/02/16 10/02/16 20:09 20:10 20:20 20:30 Temp 97.5 97.5 97.5 97.5 Pulse 82 78 80 78 Resp 20 18 20 20 B/P 106/67 110/58 122/65 117/56 Pulse Ox 100 99 100 O2 Delivery Room Air Room Air Room Air 10/02/16 10/02/16 10/02/16 10/02/16 20:50 21:15 21:30 21:45 Temp 97.9 97.9 Pulse 86 86 88 84 Resp 16 17 B/P 111/60 122/73 106/67 112/62 Pulse Ox 100 100 98 O2 Delivery Room Air Room Air Room Air 10/02/16 10/02/16 10/02/16 10/03/16 22:00 22:30 23:00 00:00 Temp 98.1 98.1 Pulse 84 84 82 82 Resp 18 18 16 B/P 112/63 106/69 113/68 106/62 Pulse Ox 100 100 100 98 O2 Delivery Room Air Room Air Room Air Room Air 10/03/16 10/03/16 10/03/16 10/03/16 01:00 02:00 03:00 04:00 Temp 97.8 97.8 Pulse 82 82 85 85 Resp 17 16 B/P 113/68 108/62 100/61 99/47 Pulse Ox 100 98 99 98 O2 Delivery Room Air Room Air Room Air Room Air 10/03/16 10/03/16 10/03/16 10/03/16 06:00 07:00 08:00 08:00 Temp 98.0 98.0 Pulse 79 78 74 Resp 17 15 9 B/P 104/53 91/46 99/54 Pulse Ox 99 99 98 O2 Delivery Room Air Room Air Room Air Room Air 10/03/16 10/03/16 10/03/16 10/03/16 09:00 10:00 11:00 12:00 Pulse 75 75 71 Resp 33 20 14 B/P 101/61 107/53 97/55 Pulse Ox 99 100 96 O2 Delivery Room Air Room Air Room Air Room Air 10/03/16 10/03/16 10/03/16 12:00 13:40 13:40 Temp 98.1 99.3 98.1 99.3 Pulse 75 71 Resp 21 18 B/P 108/58 Pulse Ox 96 100 O2 Delivery Room Air Room Air Intake and Output 10/02/16 10/02/16 10/03/16 15:00 23:00 07:00 Intake Total 2155 ml 172 ml Output Total 800 ml Balance 2155 ml -628 ml JARROD MOREAU MD Oct 03, 2016 13:52
[2016-10-03] MEDS ORDERED: ACETAMINOPHEN 325 MG TABLET. PO PRN (14:00)
[2016-10-03] MEDS ORDERED: ONDANSETRON PF 4 MG/2 ML VIAL. IV PRN (14:00)
[2016-10-03] MEDS ORDERED: PROPOFOL 20 ML IV ONE ×2 (14:14→14:41)
--- NOTE | 2016-10-03 14:44 | PDOC4 ---
Operative Note Operative Note EGD with band ligation Meds propofol per anesthesia Pre-op dx acute blood loss anemia/melena Post-op dx small gastric ulcer s/p bx non-bleeding gastric varices esophageal varices with red wheal sign S/p band ligation x [address] scan abd/pelvis continue sandostatin drip until am/stop PPi drip npo until am serial cbcs TIPS and/or gastric varices glue sclerotherapy at [facility] as o/p RAVINDRA GREY MD Oct 03, 2016 14:44
[2016-10-03] MEDS ORDERED: IOHEXOL 240 MG/ML 50ML VIAL. PO ONE (15:15)
[2016-10-03] MEDS ORDERED: MORPHINE SULFATE 4 MG/ML DISP.SYRIN. IV PRN (15:15)
[2016-10-03] MEDS ORDERED: IOHEXOL 300 MG/ML 75 ML VIAL IV ONE (15:15)
[2016-10-03] MEDS ORDERED: CONTRAST GIVEN MC PRN (15:15)
[2016-10-03] MEDS: OCTREOTIDE 500 MCG in IV NORMAL SALINE 100ML 100 ML IV PRN (15:32)
[2016-10-03] MEDS: MORPHINE SULFATE 2 MG/ML DISP.SYRIN. IV PRN ×2 (15:32→20:46)
[2016-10-03] MEDS: IV 1/2 NORMAL SALINE 1,000 ML IV SCH (15:33)
[2016-10-03 16:17] LABS: HEMATOCRIT 26.9 % (39.0-53.0); HEMOGLOBIN 9.1 g/dL (13.0-17.5); RED BLOOD COUNT 2.82 x10^6/uL (4.30-5.70); RED CELL DISTRIBUTION WIDTH 16.4 % (11.5-14.5); WHITE BLOOD COUNT 5.2 x10^3/uL (4.0-11.0)
[2016-10-04] VITALS (14 sets, daily range): BP systolic 81–114; BP diastolic 44–69
[2016-10-04 00:45] LABS: HEMATOCRIT 25.2 % (39.0-53.0); HEMOGLOBIN 8.4 g/dL (13.0-17.5); RED BLOOD COUNT 2.65 x10^6/uL (4.30-5.70); RED CELL DISTRIBUTION WIDTH 16.5 % (11.5-14.5); WHITE BLOOD COUNT 3.8 x10^3/uL (4.0-11.0)
[2016-10-04 02:15] LABS: HEP A IGM ABDY Negative (Negative)
[2016-10-04] MEDS: MORPHINE SULFATE 2 MG/ML DISP.SYRIN. IV PRN ×2 (02:59→11:08)
[2016-10-04] MEDS: IV 1/2 NORMAL SALINE 1,000 ML IV SCH (03:03)
[2016-10-04] MEDS: OCTREOTIDE 500 MCG in IV NORMAL SALINE 100ML 100 ML IV PRN (04:32)
[2016-10-04 05:23] LABS: CALCIUM 7.5 mg/dL (8.5-10.1); CREATININE 0.9 mg/dL (0.7-1.3); GFR 88.6; POTASSIUM 3.7 mmol/L (3.5-5.1)
[2016-10-04 07:53] LABS: BASO # 0.1 x10^3/uL (0.0-0.2); BASO % 2 % (0-3); EOS % 4 % (0-3); HEMOGLOBIN 9.2 g/dL (13.0-17.5); LYMPH # 1.2 x10^3/uL (1.0-4.8); LYMPH % 29 % (24-48); MEAN CORPUSCULAR HEMOGLOBIN 33 pg (25-35); MEAN CORPUSCULAR HGB CONC 34 g/dL (31-37); MEAN CORPUSCULAR VOLUME 96 fL (79-100); MONO % 6 % (0-9); NEUT % 59 % (31-73); PLATELET COUNT 157 x10^3/uL (140-400); RED BLOOD COUNT 2.81 x10^6/uL (4.30-5.70); WHITE BLOOD COUNT 4.1 x10^3/uL (4.0-11.0)
--- NOTE | 2016-10-04 09:30 | RAD ---
INDICATION: Nausea and vomiting COMPARISON: None. TECHNIQUE: Axial CT images were obtained through the abdomen and pelvis with intravenous contrast. Coronal reformations were processed. FINDINGS: Abdomen: Linear opacity right lower lung. Could be atelectasis or scarring. Multiple gastroesophageal varices. There may also be some mild prominent lymph nodes adjacent to distal esophagus. Moderate calcific atherosclerosis. Cirrhotic liver morphology. Gallstone. No peripancreatic edema. There are some mildly enlarged Lymph nodes adjacent to liver. Spleen is enlarged with calcified granulomas. Probable splenorenal shunt. No hydronephrosis. Multiple nonobstructive renal stones, right greater than left. Left fat-containing inguinal hernia. The appendix does not appear grossly inflamed. Trace edema adjacent to the proximal colon No dilated loops of bowel to suggest obstruction. Degenerative changes spine. Sclerotic focus left femoral head. IMPRESSION: 1. Cirrhotic liver morphology with splenomegaly. This can be seen with portal hypertension. 2. Gastroesophageal varices and large collateral vessels in the upper abdomen. 3. Nonobstructive renal stones. 4. Gallstone. 5. Trace edema adjacent to proximal colon. Could be related to the patient's liver disease but if there is pain in the region early colitis is possible. 6. Sclerotic lesion left femoral head. Most commonly bone island unless the patient has history of neoplasm. PQRS Compliance Statement: One or more of the following individualized dose reduction techniques were utilized for this examination: 1. Automated exposure control 2. Adjustment of the mA and/or kV according to patient size 3. Use of iterative reconstruction technique
--- NOTE | 2016-10-04 10:16 | PDOC ---
Subjective: Subjective: Per pt - feeling okay, wants to eat. Some abd pain. No bleeding. Objective: Objective: Per RN - wants something to eat, no further bleeding. Vital Signs: Vital Signs Date Time Temp Pulse Resp B/P Pulse Ox O2 Delivery O2 Flow Rate FiO2 10/04/16 09:00 63 15 114/63 100 Room Air 10/04/16 08:00 97.6 97.6 10/04/16 03:29 2.0 Labs: Laboratory Tests Test 10/03/16 16:00 10/03/16 16:05 10/04/16 00:30 10/04/16 07:40 White Blood Count 5.2x10^3/uL 3.8x10^3/uL 4.1x10^3/uL Red Blood Count 2.82x10^6/uL 2.65x10^6/uL 2.81x10^6/uL Hemoglobin 9.1g/dL 8.4g/dL 9.2g/dL Hematocrit 26.9% 25.2% 27.0% Mean Corpuscular Volume 95fL 95fL 96fL Mean Corpuscular Hemoglobin 32pg 32pg 33pg Mean Corpuscular Hemoglobin Concent 34g/dL 34g/dL 34g/dL Red Cell Distribution Width 16.4% 16.5% 17.0% Platelet Count 142x10^3/uL 144x10^3/uL 157x10^3/uL Hepatitis A IgM Antibody Negative Hepatitis B Surface Antigen Negative Hepatitis B Core IgM Antibody Negative Hepatitis C Antibody >11.0s/co ratio Sodium Level 146mmol/L Potassium Level 3.7mmol/L Chloride Level 114mmol/L Carbon Dioxide Level 24mmol/L Anion Gap 8 Blood Urea Nitrogen 29mg/dL Creatinine 0.9mg/dL Estimated GFR (Cockcroft-Gault) 88.6 Glucose Level 90mg/dL Calcium Level 7.5mg/dL Neutrophils (%) (Auto) 59% Lymphocytes (%) (Auto) 29% Monocytes (%) (Auto) 6% Eosinophils (%) (Auto) 4% Basophils (%) (Auto) 2% Neutrophils # (Auto) 2.4x10^3uL Lymphocytes # (Auto) 1.2x10^3/uL Monocytes # (Auto) 0.2x10^3/uL Eosinophils # (Auto) 0.2x10^3/uL Basophils # (Auto) 0.1x10^3/uL Imaging: EGD 10/03/16: esophageal varices with red wheal sign s/p band ligation x 5 recs: TIPS and/or gastric varices glue sclerotherapy at [facility] as o/p CT A/P w/ oral and IV contrast 10/04/16 IMPRESSION: 1. Cirrhotic liver morphology with splenomegaly. This can be seen with portal hypertension. 2. Gastroesophageal varices and large collateral vessels in the upper abdomen. 3. Nonobstructive renal stones. 4. Gallstone. 5. Trace edema adjacent to proximal colon. Could be related to the patient's liver disease but if there is pain in the region early colitis is possible. 6. Sclerotic lesion left femoral head. Most commonly bone island unless the patient has history of neoplasm. PE: GEN: NAD LUNGS: CTAB HEART: RRR ABD: BS+, RUQ tenderness w/ deep palpation, hepatomegaly/firm liver NEURO/PSYCH: A & O 3 A/P: Hep C cirrhosis w/ esophageal, gastric varices -s/p EGD w/ banding 10/04 -confirmed w/ Hep panel -CT as above Melena - resolved Anemia -Hgb improving, s/p transfusion RUQ pain -- D/w Dr. Herrera, RN. Okay for clears, transfer out of ICU. Will also stop octreotide. LEONA MANCUSO Oct 04, 2016 10:16
--- NOTE | 2016-10-04 13:19 | PDOC ---
PROGRESS NOTES Chief Complaint Chief Complaint syncope, 2/2 hypovolemia likely GI bleed, acute blood loss anemia, 2/2 varices bleeding/gastric ulcer likely, s /p eso varices banding 10/03 FROM detention Hx hep C mod/severe malnutrition GERD esophageal/gastric varices, gastric ulcer non bleeding plan: GI consulted egd done on protonix and octreotide drip for now clear liquid diet got 2u PRBC transfusion on 10/02 ivf labs tmr abd ct as per GI History of Present Illness History of Present Illness got 2u PRBC, now HB still low at 9 EGD 10/03 with varices banding no further gib + abd pain Vitals Vitals Vital Signs Date Time Temp Pulse Resp B/P Pulse Ox O2 Delivery O2 Flow Rate FiO2 10/04/16 12:00 98.1 64 12 81/44 98 Room Air 98.1 10/04/16 11:38 2.0 Physical Exam General: Alert, Oriented X3, Cooperative, mild distress Heart: Regular rate Lungs: Clear Abdomen: Normal bowel sounds, Soft, Other (middle abd tenderness) Extremities: No clubbing, No cyanosis, No edema, Normal pulses Skin: No rashes, No breakdown Labs LABS Laboratory Tests Test 10/03/16 16:00 10/03/16 16:05 10/04/16 00:30 10/04/16 07:40 White Blood Count 5.2x10^3/uL (4.0-11.0) 3.8x10^3/uL (4.0-11.0) 4.1x10^3/uL (4.0-11.0) Red Blood Count 2.82x10^6/uL (4.30-5.70) 2.65x10^6/uL (4.30-5.70) 2.81x10^6/uL (4.30-5.70) Hemoglobin 9.1g/dL (13.0-17.5) 8.4g/dL (13.0-17.5) 9.2g/dL (13.0-17.5) Hematocrit 26.9% (39.0-53.0) 25.2% (39.0-53.0) 27.0% (39.0-53.0) Mean Corpuscular Volume 95fL (79-100) 95fL (79-100) 96fL (79-100) Mean Corpuscular Hemoglobin 32pg (25-35) 32pg (25-35) 33pg (25-35) Mean Corpuscular Hemoglobin Concent 34g/dL (31-37) 34g/dL (31-37) 34g/dL (31-37) Red Cell Distribution Width 16.4% (11.5-14.5) 16.5% (11.5-14.5) 17.0% (11.5-14.5) Platelet Count 142x10^3/uL (140-400) 144x10^3/uL (140-400) 157x10^3/uL (140-400) Hepatitis A IgM Antibody Negative (Negative) Hepatitis B Surface Antigen Negative (Negative) Hepatitis B Core IgM Antibody Negative (Negative) Hepatitis C Antibody >11.0s/co ratio Sodium Level 146mmol/L (136-145) Potassium Level 3.7mmol/L (3.5-5.1) Chloride Level 114mmol/L (98-107) Carbon Dioxide Level 24mmol/L (21-32) Anion Gap 8 (6-14) Blood Urea Nitrogen 29mg/dL (8-26) Creatinine 0.9mg/dL (0.7-1.3) Estimated GFR (Cockcroft-Gault) 88.6 Glucose Level 90mg/dL (70-99) Calcium Level 7.5mg/dL (8.5-10.1) Neutrophils (%) (Auto) 59% (31-73) Lymphocytes (%) (Auto) 29% (24-48) Monocytes (%) (Auto) 6% (0-9) Eosinophils (%) (Auto) 4% (0-3) Basophils (%) (Auto) 2% (0-3) Neutrophils # (Auto) 2.4x10^3uL (1.8-7.7) Lymphocytes # (Auto) 1.2x10^3/uL (1.0-4.8) Monocytes # (Auto) 0.2x10^3/uL (0.0-1.1) Eosinophils # (Auto) 0.2x10^3/uL (0.0-0.7) Basophils # (Auto) 0.1x10^3/uL (0.0-0.2) Review of Systems Review of Systems no fever, chills, sob or chest pain Assessment and Plan Assessmemt and Plan Problems Medical Problems: (1) GI bleed Status: Acute Problems: Comment Review of Relevant I have reviewed the following items telma (where applicable) has been applied. Labs Laboratory Tests Test 10/02/16 17:45 10/02/16 17:46 10/02/16 18:00 10/03/16 00:01 White Blood Count 10.9x10^3/uL (4.0-11.0) Red Blood Count 2.53x10^6/uL (4.30-5.70) Hemoglobin 8.4g/dL (13.0-17.5) Hematocrit 24.5% (39.0-53.0) Mean Corpuscular Volume 97fL (79-100) Mean Corpuscular Hemoglobin 33pg (25-35) Mean Corpuscular Hemoglobin Concent 34g/dL (31-37) Red Cell Distribution Width 14.5% (11.5-14.5) Platelet Count 295x10^3/uL (140-400) Neutrophils (%) (Auto) 70% (31-73) Lymphocytes (%) (Auto) 19% (24-48) Monocytes (%) (Auto) 6% (0-9) Eosinophils (%) (Auto) 4% (0-3) Basophils (%) (Auto) 1% (0-3) Neutrophils # (Auto) 7.6x10^3uL (1.8-7.7) Lymphocytes # (Auto) 2.1x10^3/uL (1.0-4.8) Monocytes # (Auto) 0.7x10^3/uL (0.0-1.1) Eosinophils # (Auto) 0.4x10^3/uL (0.0-0.7) Basophils # (Auto) 0.1x10^3/uL (0.0-0.2) Sodium Level 147mmol/L (136-145) Potassium Level 3.8mmol/L (3.5-5.1) Chloride Level 113mmol/L (98-107) Carbon Dioxide Level 25mmol/L (21-32) Anion Gap 9 (6-14) Blood Urea Nitrogen 34mg/dL (8-26) Creatinine 1.0mg/dL (0.7-1.3) Estimated GFR (Cockcroft-Gault) 78.5 BUN/Creatinine Ratio 34 (6-20) Glucose Level 148mg/dL (70-99) Calcium Level 8.3mg/dL (8.5-10.1) Total Bilirubin 0.8mg/dL (0.2-1.0) Aspartate Amino Transf (AST/SGOT) 35U/L (15-37) Alanine Aminotransferase (ALT/SGPT) 37U/L (16-63) Alkaline Phosphatase 57U/L (46-116) Total Protein 4.9g/dL (6.4-8.2) Albumin 2.1g/dL (3.4-5.0) Albumin/Globulin Ratio 0.8 (1.0-1.7) Prothrombin Time 18.3SEC (11.7-14.0) Prothromb Time International Ratio 1.6 (0.8-1.1) Stool Occult Blood Positive (NEG) Nasal Screen MRSA (PCR) Positive (Negative) Test 10/03/16 01:58 10/03/16 08:10 10/03/16 16:00 10/03/16 16:05 White Blood Count 8.3x10^3/uL (4.0-11.0) 5.2x10^3/uL (4.0-11.0) Red Blood Count 3.07x10^6/uL (4.30-5.70) 2.82x10^6/uL (4.30-5.70) Hemoglobin 9.8g/dL (13.0-17.5) 9.0g/dL (13.0-17.5) 9.1g/dL (13.0-17.5) Hematocrit 28.8% (39.0-53.0) 25.5% (39.0-53.0) 26.9% (39.0-53.0) Mean Corpuscular Volume 94fL (79-100) 95fL (79-100) Mean Corpuscular Hemoglobin 32pg (25-35) 32pg (25-35) Mean Corpuscular Hemoglobin Concent 34g/dL (31-37) 35g/dL (31-37) 34g/dL (31-37) Red Cell Distribution Width 15.5% (11.5-14.5) 16.4% (11.5-14.5) Platelet Count 215x10^3/uL (140-400) 142x10^3/uL (140-400) Neutrophils (%) (Auto) 74% (31-73) Lymphocytes (%) (Auto) 17% (24-48) Monocytes (%) (Auto) 6% (0-9) Eosinophils (%) (Auto) 2% (0-3) Basophils (%) (Auto) 1% (0-3) Neutrophils # (Auto) 6.1x10^3uL (1.8-7.7) Lymphocytes # (Auto) 1.4x10^3/uL (1.0-4.8) Monocytes # (Auto) 0.5x10^3/uL (0.0-1.1) Eosinophils # (Auto) 0.2x10^3/uL (0.0-0.7) Basophils # (Auto) 0.1x10^3/uL (0.0-0.2) Sodium Level 144mmol/L (136-145) Potassium Level 4.7mmol/L (3.5-5.1) Chloride Level 115mmol/L (98-107) Carbon Dioxide Level 23mmol/L (21-32) Anion Gap 6 (6-14) Blood Urea Nitrogen 34mg/dL (8-26) Creatinine 1.0mg/dL (0.7-1.3) Estimated GFR (Cockcroft-Gault) 78.5 Glucose Level 118mg/dL (70-99) Calcium Level 8.0mg/dL (8.5-10.1) Hepatitis A IgM Antibody Negative (Negative) Hepatitis B Surface Antigen Negative (Negative) Hepatitis B Core IgM Antibody Negative (Negative) Hepatitis C Antibody >11.0s/co ratio Test 10/04/16 00:30 10/04/16 07:40 White Blood Count 3.8x10^3/uL (4.0-11.0) 4.1x10^3/uL (4.0-11.0) Red Blood Count 2.65x10^6/uL (4.30-5.70) 2.81x10^6/uL (4.30-5.70) Hemoglobin 8.4g/dL (13.0-17.5) 9.2g/dL (13.0-17.5) Hematocrit 25.2% (39.0-53.0) 27.0% (39.0-53.0) Mean Corpuscular Volume 95fL (79-100) 96fL (79-100) Mean Corpuscular Hemoglobin 32pg (25-35) 33pg (25-35) Mean Corpuscular Hemoglobin Concent 34g/dL (31-37) 34g/dL (31-37) Red Cell Distribution Width 16.5% (11.5-14.5) 17.0% (11.5-14.5) Platelet Count 144x10^3/uL (140-400) 157x10^3/uL (140-400) Sodium Level 146mmol/L (136-145) Potassium Level 3.7mmol/L (3.5-5.1) Chloride Level 114mmol/L (98-107) Carbon Dioxide Level 24mmol/L (21-32) Anion Gap 8 (6-14) Blood Urea Nitrogen 29mg/dL (8-26) Creatinine 0.9mg/dL (0.7-1.3) Estimated GFR (Cockcroft-Gault) 88.6 Glucose Level 90mg/dL (70-99) Calcium Level 7.5mg/dL (8.5-10.1) Neutrophils (%) (Auto) 59% (31-73) Lymphocytes (%) (Auto) 29% (24-48) Monocytes (%) (Auto) 6% (0-9) Eosinophils (%) (Auto) 4% (0-3) Basophils (%) (Auto) 2% (0-3) Neutrophils # (Auto) 2.4x10^3uL (1.8-7.7) Lymphocytes # (Auto) 1.2x10^3/uL (1.0-4.8) Monocytes # (Auto) 0.2x10^3/uL (0.0-1.1) Eosinophils # (Auto) 0.2x10^3/uL (0.0-0.7) Basophils # (Auto) 0.1x10^3/uL (0.0-0.2) Laboratory Tests Test 10/03/16 16:00 10/03/16 16:05 10/04/16 00:30 10/04/16 07:40 White Blood Count 5.2x10^3/uL (4.0-11.0) 3.8x10^3/uL (4.0-11.0) 4.1x10^3/uL (4.0-11.0) Red Blood Count 2.82x10^6/uL (4.30-5.70) 2.65x10^6/uL (4.30-5.70) 2.81x10^6/uL (4.30-5.70) Hemoglobin 9.1g/dL (13.0-17.5) 8.4g/dL (13.0-17.5) 9.2g/dL (13.0-17.5) Hematocrit 26.9% (39.0-53.0) 25.2% (39.0-53.0) 27.0% (39.0-53.0) Mean Corpuscular Volume 95fL (79-100) 95fL (79-100) 96fL (79-100) Mean Corpuscular Hemoglobin 32pg (25-35) 32pg (25-35) 33pg (25-35) Mean Corpuscular Hemoglobin Concent 34g/dL (31-37) 34g/dL (31-37) 34g/dL (31-37) Red Cell Distribution Width 16.4% (11.5-14.5) 16.5% (11.5-14.5) 17.0% (11.5-14.5) Platelet Count 142x10^3/uL (140-400) 144x10^3/uL (140-400) 157x10^3/uL (140-400) Hepatitis A IgM Antibody Negative (Negative) Hepatitis B Surface Antigen Negative (Negative) Hepatitis B Core IgM Antibody Negative (Negative) Hepatitis C Antibody >11.0s/co ratio Sodium Level 146mmol/L (136-145) Potassium Level 3.7mmol/L (3.5-5.1) Chloride Level 114mmol/L (98-107) Carbon Dioxide Level 24mmol/L (21-32) Anion Gap 8 (6-14) Blood Urea Nitrogen 29mg/dL (8-26) Creatinine 0.9mg/dL (0.7-1.3) Estimated GFR (Cockcroft-Gault) 88.6 Glucose Level 90mg/dL (70-99) Calcium Level 7.5mg/dL (8.5-10.1) Neutrophils (%) (Auto) 59% (31-73) Lymphocytes (%) (Auto) 29% (24-48) Monocytes (%) (Auto) 6% (0-9) Eosinophils (%) (Auto) 4% (0-3) Basophils (%) (Auto) 2% (0-3) Neutrophils # (Auto) 2.4x10^3uL (1.8-7.7) Lymphocytes # (Auto) 1.2x10^3/uL (1.0-4.8) Monocytes # (Auto) 0.2x10^3/uL (0.0-1.1) Eosinophils # (Auto) 0.2x10^3/uL (0.0-0.7) Basophils # (Auto) 0.1x10^3/uL (0.0-0.2) Medications Current Medications Sodium Chloride 1,000 ml @ 1,000 mls/hr 1X ONCE IV Last administered on 18:36; Start 10/02/16 at 18:15; Stop 10/02/16 at 19:14; Status DC Pantoprazole Sodium 80 mg/ Sodium Chloride 100 ml @ 10 mls/hr Q10H IV Last administered on 10/03/16 04:08; Start 10/02/16 at 18:15; Stop 10/03/16 at 14:49 ; Status DC Pantoprazole Sodium/Sodium Chloride (Protonix Iv/Iv Sodium Chloride 0.9% 100ml) 100 ml @ 10 mls/hr 1X ONCE IV Last administered on 10/02/16 18:29; Start at 18:15; Stop 10/03/16 at 14:49; Status DC Pantoprazole Sodium (Protonix Vial) 80 mg ONCE ONCE IVP ; Start 10/02/16 at 18: 15; Stop 10/02/16 at 18:16; Status Cancel Ondansetron HCl 4 mg 4 mg PRN Q8HRS PRN IV NAUSEA/VOMITING; Start 10/02/16 at 18:45; Stop 10/03/16 at 18:44; Status DC Sodium Chloride 1,000 ml @ 125 mls/hr Q8H IV Last administered on 10/03/16 03 :00; Start 10/02/16 at 19:00; Stop 10/03/16 at 18:59; Status DC Octreotide Acetate 500 mcg/ Sodium Chloride 101 ml @ 10.1 mls/hr CONT PRN IV SEE I/O RECORD Last administered on 10/04/16 04:32; Start 10/02/16 at 19:00; Stop 10/04/16 at 10:17; Status DC Octreotide Acetate/Sodium Chloride (Sandostatin/Iv Sodium Chloride 0.9% 100ml) 101 ml @ 0 mls/hr CONT PRN IV SEE I/O RECORD; Start 10/02/16 at 19:00; Status UNV Octreotide Acetate (Sandostatin) 100 mcg ONCE ONCE SQ ; Start 10/02/16 at 19:15 ; Stop 10/02/16 at 19:16; Status Cancel Diphtheria/ Tetanus/Acell Pertussis (Boostrix) 0.5 ml ONCE ONCE VAX IM Last administered on 10/02/16 20:17; Start 10/02/16 at 19:15; Stop 10/02/16 at 19:17 ; Status DC Octreotide Acetate (Sandostatin) 100 mcg ONCE ONCE IV Last administered on 19:30; Start 10/02/16 at 19:15; Stop 10/02/16 at 19:18; Status DC Phytonadione (Vitamin K) 2 mg 1X ONCE SQ Last administered on 10/02/16 20:30 ; Start 10/02/16 at 20:30; Stop 10/02/16 at 20:31; Status DC Info (Do NOT chart on this placeholder) 1 each 1X ONCE MC ; Start 10/03/16 at 02:45; Stop 10/03/16 at 02:46; Status UNV Influenza Virus Vaccine Quadrival 0.5 ml 0.5 ml ONCE ONCE VAX IM Last administered on 10/03/16 22:35; Start 10/03/16 at 09:00; Stop 10/03/16 at 09:01 ; Status DC Lactated Ringer's 1,000 ml @ 50 mls/hr Q20H IV Last administered on 2/16/17at 13:47; Start 10/03/16 at 13:34; Stop 10/04/16 at 01:33; Status DC Lactated Ringer's (Iv Lactated Ringers) 1,000 ml @ 30 mls/hr Q24H IV ; Start at 13:45; Stop 10/04/16 at 11:42; Status DC Acetaminophen (Tylenol) 650 mg PRN Q6HRS PRN PO MILD PAIN / TEMP; Start at 14:00 Ondansetron HCl 4 mg 4 mg PRN Q6HRS PRN IV NAUSEA/VOMITING; Start 10/03/16 at 14:00 Sodium Chloride 1,000 ml @ 75 mls/hr [id number] IV Last administered on 03:03; Start 10/03/16 at 14:00; Stop 10/04/16 at 11:42; Status DC Propofol 20 ml @ As Directed STK-MED ONCE IV ; Start 10/03/16 at 14:14; Stop at 14:15; Status DC Propofol (Diprivan) 20 ml @ As Directed STK-MED ONCE IV ; Start 10/03/16 at 14: 41; Stop 10/03/16 at 14:42; Status DC Iohexol (Omnipaque 240 Mg/ml) 30 ml 1X ONCE PO ; Start 10/03/16 at 15:15; Stop 10/03/16 at 15:16; Status DC Iohexol (Omnipaque 300 Mg/ml) 75 ml 1X ONCE IV Last administered on 10/04/16 08:45; Start 10/03/16 at 15:15; Stop 10/03/16 at 15:16; Status DC Info (Do NOT chart on this entry -- for MONITORING) 1 each PRN DAILY PRN MC SEE COMMENTS; Start 10/03/16 at 15:15; Stop 10/05/16 at 15:14 Morphine Sulfate 2 mg Q4HRS PRN IV MILD-MOD PAIN Last administered on 11:08; Start 10/03/16 at 15:15 Morphine Sulfate 4 mg Q4H PRN IV SEVERE PAIN; Start 10/03/16 at 15:15 Active Scripts Active Reported Ibuprofen 200 Mg Tablet 200 Mg PO PRN Q6HRS PRN Triamterene-Hctz 37.5-25 Mg Tb (Triamterene/Hydrochlorothiazid) 1 Each Tablet 1 Tab PO DAILY Vitals/I & O Vital Sign - Last 24 Hours 10/03/16 10/03/16 10/03/16 10/03/16 13:40 13:40 14:36 14:51 Temp 99.3 98.4 99.3 98.4 Pulse 71 79 80 Resp 18 20 20 B/P 121/63 114/72 Pulse Ox 100 99 100 O2 Delivery Room Air Nasal Cannula Room Air O2 Flow Rate 2.0 10/03/16 10/03/16 10/03/16 10/03/16 15:06 15:32 16:00 16:00 Temp 98.6 98.6 Pulse 76 72 Resp 20 14 B/P 110/76 100/45 Pulse Ox 98 98 99 O2 Delivery Room Air Room Air Room Air O2 Flow Rate 2.0 10/03/16 10/03/16 10/03/16 10/03/16 17:00 18:00 19:00 20:00 Pulse 73 74 74 Resp 12 12 B/P 111/65 100/50 105/41 Pulse Ox 100 99 99 O2 Delivery Room Air Room Air Room Air Room Air 10/03/16 10/03/16 10/03/16 10/03/16 20:00 20:46 21:00 22:00 Temp 97.9 97.9 Pulse 73 74 76 Resp 12 12 12 B/P 115/53 108/50 100/47 Pulse Ox 100 99 100 100 O2 Delivery Room Air Room Air Room Air Room Air O2 Flow Rate 2.0 10/03/16 10/03/16 10/04/16 10/04/16 23:00 23:59 00:00 01:00 Temp 97.8 97.8 Pulse 72 73 69 Resp 07 29 12 B/P 102/47 93/50 103/54 Pulse Ox 100 96 98 O2 Delivery Room Air Room Air Room Air Room Air 10/04/16 10/04/16 10/04/16 10/04/16 02:00 02:59 03:00 03:29 Pulse 69 68 Resp 13 16 12 13 B/P 113/64 97/46 Pulse Ox 98 98 97 O2 Delivery Room Air Room Air Room Air O2 Flow Rate 2.0 10/04/16 10/04/16 10/04/1617 04:00 04:00 05:00 06:00 Temp 97.8 97.8 Pulse 69 67 64 Resp 12 14 10 B/P 113/64 108/62 112/51 Pulse Ox 97 97 97 O2 Delivery Room Air Room Air Room Air Room Air 10/04/16 10/04/16 10/04/16 10/04/16 07:00 08:00 08:00 09:00 Temp 97.6 97.6 Pulse 60 62 63 Resp 16 13 15 B/P 101/53 108/62 114/63 Pulse Ox 98 99 100 O2 Delivery Room Air Room Air Room Air Room Air 10/04/16 10/04/16 10/04/16 11:08 11:38 12:00 Temp 98.1 98.1 Pulse 64 Resp 12 B/P 81/44 Pulse Ox 100 100 98 O2 Delivery Room Air Room Air Room Air O2 Flow Rate 2.0 2.0 Intake and Output 10/03/16 10/03/16 10/04/16 15:00 23:00 07:00 Intake Total 800 ml 1315 ml 1030 ml Output Total 500 ml 300 ml 300 ml Balance 300 ml 1015 ml 730 ml JARROD MOREAU MD Oct 04, 2016 13:19
--- NOTE | 2016-10-04 16:30 | PATHOLOGY ---
PATHOLOGY REPORT * * * * * * * * FINAL DIAGNOSIS: Gastric biopsy, gastric ulcer: - Mild active chronic gastritis. COMMENT: Sections of the gastric biopsy reveal gastric antral mucosa showing focal mild active chronic inflammation. An immunoperoxidase stain for Helicobacter is obtained. No Helicobacter organisms are identified. There is no evidence of malignancy. (JPM:mgwoody; d/t: 10/04/16) Special Stain: Helicobacter pylori (A) REPORT ELECTRONICALLY SIGNED BY: Ariel Turcios M.D. DATE/TIME: 10/04/2016 16:29 * * * * * * * * GROSS PATHOLOGY: Received in formalin labeled "Darnell Luis and bx gastric ulcer," are 2 segments of yen soft tissue measuring 0.7 x 0.2 x 0.2 cm in aggregate dimensions and measuring 0.2 and 0.5 cm in maximum dimension. The specimen is submitted entirely in cassette A1. (TTL; 10/03/2016) INITIAL CPT CODE(S): A; 99534, 68801 Professional services performed [place] [facility] [address] Technical services performed by [facility] at [address] [place] [address] [address] [address]. [facility] SPECIMEN(S) RECEIVED: A.Gastric ulcer CLINICAL HISTORY: GI bleed PATIENT: DARNELL LUIS /AGE: 6 1965 (Age: 51) PATIENT #: [id number] ALT CASE #: SPECIMEN COLLECTION DATE: 10/03/2016 SPECIMEN RECEIVED DATE: 10/03/2016 [facility] - [address] [place] [address] - PHONE: [phone] * * * END OF REPORT * * *
[2016-10-04] MEDS: HYDROCODONE/APAP 5/325MG TABLET. PO PRN (20:36)
[2016-10-05 03:00] VITALS: BP 110/60
[2016-10-05 05:56] LABS: BASO % 1 % (0-3); EOS % 5 % (0-3); HEMATOCRIT 25.2 % (39.0-53.0); HEMOGLOBIN 8.6 g/dL (13.0-17.5); LYMPH # 0.9 x10^3/uL (1.0-4.8); LYMPH % 25 % (24-48); MEAN CORPUSCULAR HEMOGLOBIN 33 pg (25-35); MEAN CORPUSCULAR HGB CONC 34 g/dL (31-37); MEAN CORPUSCULAR VOLUME 96 fL (79-100); MONO % 8 % (0-9); NEUT % 62 % (31-73); PLATELET COUNT 142 x10^3/uL (140-400); RED BLOOD COUNT 2.63 x10^6/uL (4.30-5.70); RED CELL DISTRIBUTION WIDTH 16.7 % (11.5-14.5); WHITE BLOOD COUNT 3.7 x10^3/uL (4.0-11.0)
[2016-10-05 06:37] LABS: CALCIUM 7.4 mg/dL (8.5-10.1); CREATININE 0.9 mg/dL (0.7-1.3); GFR 88.6; POTASSIUM 3.4 mmol/L (3.5-5.1)
[2016-10-05 08:00] VITALS: BP 111/65
[2016-10-05] MEDS: HYDROCODONE/APAP 5/325MG TABLET. PO PRN ×2 (08:16→14:37)
[2016-10-05 10:40] VITALS: BP 100/42
--- NOTE | 2016-10-05 11:13 | PDOC ---
Subjective: Subjective: No melena or hematemesis Objective: Vital Signs: Vital Signs Date Time Temp Pulse Resp B/P Pulse Ox O2 Delivery O2 Flow Rate FiO2 10/05/16 08:16 99 Room Air 2.0 10/05/16 08:00 98.0 60 12 111/65 98.0 Labs: Laboratory Tests Test 10/05/16 04:40 White Blood Count 3.7x10^3/uL (4.0-11.0) Red Blood Count 2.63x10^6/uL (4.30-5.70) Hemoglobin 8.6g/dL (13.0-17.5) Hematocrit 25.2% (39.0-53.0) Mean Corpuscular Volume 96fL (79-100) Mean Corpuscular Hemoglobin 33pg (25-35) Mean Corpuscular Hemoglobin Concent 34g/dL (31-37) Red Cell Distribution Width 16.7% (11.5-14.5) Platelet Count 142x10^3/uL (140-400) Neutrophils (%) (Auto) 62% (31-73) Lymphocytes (%) (Auto) 25% (24-48) Monocytes (%) (Auto) 8% (0-9) Eosinophils (%) (Auto) 5% (0-3) Basophils (%) (Auto) 1% (0-3) Neutrophils # (Auto) 2.3x10^3uL (1.8-7.7) Lymphocytes # (Auto) 0.9x10^3/uL (1.0-4.8) Monocytes # (Auto) 0.3x10^3/uL (0.0-1.1) Eosinophils # (Auto) 0.2x10^3/uL (0.0-0.7) Basophils # (Auto) 0.0x10^3/uL (0.0-0.2) Sodium Level 143mmol/L (136-145) Potassium Level 3.4mmol/L (3.5-5.1) Chloride Level 111mmol/L (98-107) Carbon Dioxide Level 26mmol/L (21-32) Anion Gap 6 (6-14) Blood Urea Nitrogen 17mg/dL (8-26) Creatinine 0.9mg/dL (0.7-1.3) Estimated GFR (Cockcroft-Gault) 88.6 Glucose Level 82mg/dL (70-99) Calcium Level 7.4mg/dL (8.5-10.1) Physical Exam: Physical Exam: PE: GEN: NAD LUNGS: CTAB HEART: RRR ABD: BS+, RUQ tenderness w/ deep palpation, hepatomegaly/firm liver NEURO/PSYCH: A & O 3 Assessment & Plan: Assessment : A/P: Hep C cirrhosis w/ esophageal, gastric varices -s/p EGD w/ banding 10/04 -confirmed w/ Hep panel -CT as above Melena - resolved Anemia -Hgb stable, s/p transfusion RUQ pain LEONA MANCUSO Oct 04, 2016 10:16 Signed By: LEONA MANCUSO <<Signature on File>> Signed Date/Time: 10/04/16 1016 . Plan: S/P band ligatio of esopahgeal varices. LOnger term gastric varices will need either glue injections at [facility] or TIPS here. Advance diet and monitor Hg Stable overnight , will release.with o/p fu Problems: CESAR MEDINA MD Oct 05, 2016 11:13
[2016-10-05 12:00] VITALS: BP 100/42
[2016-10-05] MEDS ORDERED: PANTOPRAZOLE 40 MG TABLET. PO SCH (12:30)
--- NOTE | 2016-10-05 12:30 | PDOC ---
PROGRESS NOTES Chief Complaint Chief Complaint Syncope UGIB ASSESSMENT AND PLAN: 1. syncope: 2/ hypovolemia with massive bleed. resolved 2. UGIB: s/p banding of esophageal varices on 10/03. 3. Anemia of acute blood loss: s/p PRBC x2 on 10/02. appears stable. recheck this PM; if stable, pt may go home 3. HCV cirrhosis: may need TIPS vs glue injections on O/P basis 4. GERD/PUD: EGD with nonbleeding gastric ulcer. on PPI 5. Hypoalbuminemia: 2/2 cirrhosis. supplements 6. Dispo: likely home today if labs stable History of Present Illness History of Present Illness got 2u PRBC, now HB still low at 9 EGD 10/03 with varices banding no further gib + abd pain Vitals Vitals Vital Signs Date Time Temp Pulse Resp B/P Pulse Ox O2 Delivery O2 Flow Rate FiO2 10/05/16 10:40 97.4 55 10 100/42 Room Air 97.4 10/05/16 09:16 99 2.0 Physical Exam General: Alert, Oriented X3, Cooperative, mild distress Heart: Regular rate Lungs: Clear Abdomen: Normal bowel sounds, Soft, Other (mild epigastric tenderness) Extremities: No clubbing, No edema Skin: No rashes Labs LABS Laboratory Tests Test 10/05/16 04:40 White Blood Count 3.7x10^3/uL (4.0-11.0) Red Blood Count 2.63x10^6/uL (4.30-5.70) Hemoglobin 8.6g/dL (13.0-17.5) Hematocrit 25.2% (39.0-53.0) Mean Corpuscular Volume 96fL (79-100) Mean Corpuscular Hemoglobin 33pg (25-35) Mean Corpuscular Hemoglobin Concent 34g/dL (31-37) Red Cell Distribution Width 16.7% (11.5-14.5) Platelet Count 142x10^3/uL (140-400) Neutrophils (%) (Auto) 62% (31-73) Lymphocytes (%) (Auto) 25% (24-48) Monocytes (%) (Auto) 8% (0-9) Eosinophils (%) (Auto) 5% (0-3) Basophils (%) (Auto) 1% (0-3) Neutrophils # (Auto) 2.3x10^3uL (1.8-7.7) Lymphocytes # (Auto) 0.9x10^3/uL (1.0-4.8) Monocytes # (Auto) 0.3x10^3/uL (0.0-1.1) Eosinophils # (Auto) 0.2x10^3/uL (0.0-0.7) Basophils # (Auto) 0.0x10^3/uL (0.0-0.2) Sodium Level 143mmol/L (136-145) Potassium Level 3.4mmol/L (3.5-5.1) Chloride Level 111mmol/L (98-107) Carbon Dioxide Level 26mmol/L (21-32) Anion Gap 6 (6-14) Blood Urea Nitrogen 17mg/dL (8-26) Creatinine 0.9mg/dL (0.7-1.3) Estimated GFR (Cockcroft-Gault) 88.6 Glucose Level 82mg/dL (70-99) Calcium Level 7.4mg/dL (8.5-10.1) Review of Systems Review of Systems feels ok, stomach still sore, but tolerating PO MARI DEXTER MD Oct 05, 2016 12:30
[2016-10-05] MEDS ORDERED: ACET325T16 PO (12:32)
[2016-10-05] MEDS ORDERED: PANT20TA2 PO (12:32)
[2016-10-05 14:39] VITALS: BP 112/48
[2016-10-05 15:23] LABS: BASO # 0.1 x10^3/uL (0.0-0.2); BASO % 1 % (0-3); EOS % 4 % (0-3); HEMATOCRIT 25.3 % (39.0-53.0); HEMOGLOBIN 8.7 g/dL (13.0-17.5); LYMPH # 0.8 x10^3/uL (1.0-4.8); LYMPH % 21 % (24-48); MEAN CORPUSCULAR HEMOGLOBIN 33 pg (25-35); MEAN CORPUSCULAR HGB CONC 35 g/dL (31-37); MEAN CORPUSCULAR VOLUME 96 fL (79-100); MONO % 9 % (0-9); NEUT % 65 % (31-73); PLATELET COUNT 152 x10^3/uL (140-400); RED BLOOD COUNT 2.65 x10^6/uL (4.30-5.70); RED CELL DISTRIBUTION WIDTH 16.4 % (11.5-14.5)
--- NOTE | 2016-10-06 00:27 | DS ---
DATE OF DISCHARGE: 10/05/2016 CHIEF COMPLAINT: Upper GI bleed, syncope. HOSPITAL COURSE: The patient is a 51-year-old gentleman currently residing at [facility] who presented after an episode of syncope. He was quickly shown to have upper gastrointestinal bleed secondary to esophageal varices. These were banded emergently on the . No further bleed was noted. However, for the anemia of acute blood loss, he was transfused x 2 with subsequent stable hemoglobin. GI further recommended outpatient followup to address his severe HCV cirrhosis. During the EGD with banding, he was also shown to have a nonbleeding gastric ulcers, most likely secondary to NSAIDs. He was started on PPI for this. He was deemed stable for discharge on the . DISCHARGE DATE: 10/05/2016. PHYSICAL EXAMINATION: Please refer to note from same day. DISCHARGE DISPOSITION: To [facility]. DISCHARGE CONDITION: Improved. DISCHARGE DIAGNOSES: Upper gastrointestinal bleed secondary to esophageal varices, hepatitis C virus cirrhosis and anemia of acute blood loss. DISCHARGE MEDICATIONS: Please refer to MAR. DISCHARGE INSTRUCTIONS: The patient will follow up with infirmary at [facility]. Greater than 30 minutes were spent in arranging discharge. MARI DEXTER MD DR: CARLOS ALBERTO/nts JOB#: [id number] / [id number] [facility]
== END 2016-10-05 17:30 | DRG 432 ==
LOC: ER 17:23 → EEVIPCON 17:23 → 1 WEST ICU 18:13 → 5 NORTH 10-04 14:59
PROVIDERS: ADMIT Internal Medicine; ATTEND Internal Medicine
PROC: 30233N1 Transfusion of Nonautologous Red Blood Cells into Peripheral Vein, Percutaneous Approach (ICD-10-PCS; 2016-10-02)
PROC: 0W3P8ZZ Control Bleeding in Gastrointestinal Tract, Via Natural or Artificial Opening Endoscopic (ICD-10-PCS; principal; 2016-10-03 11:30)
PROC: 06L34CZ Occlusion of Esophageal Vein with Extraluminal Device, Percutaneous Endoscopic Approach (ICD-10-PCS; 2016-10-03 11:30)
DX: K74.69 Other cirrhosis of liver (principal); E43 Unspecified severe protein-calorie malnutrition; I85.11 Secondary esophageal varices with bleeding; D62 Acute posthemorrhagic anemia; B19.20 Unspecified viral hepatitis C without hepatic coma; D50.0 Iron deficiency anemia secondary to blood loss (chronic); K21.9 Gastro-esophageal reflux disease without esophagitis; Z68.31 Body mass index [BMI] 31.0-31.9, adult; K27.9 Peptic ulcer, site unspecified, unspecified as acute or chronic, without hemorrhage or perforation; K63.5 Polyp of colon; K74.60 Unspecified cirrhosis of liver; K80.20 Calculus of gallbladder without cholecystitis without obstruction; N20.0 Calculus of kidney; T39.395A Adverse effect of other nonsteroidal anti-inflammatory drugs [NSAID], initial encounter; Z87.442 Personal history of urinary calculi
CPT/HCPCS: 36415; 70450; 74177; 80048; 80053; 80074; 82274; 85014; 85018; 85027; 85610; 86850; 86900; 86901; 86920; 87641; 88305; 88342; 90471; 90686; 90715; 93005; 96365; 96366; 96372; 96375; C9113; J2270; J2354; J2704; J3430; J7030; J7120; P9016; Q9967; 99291-25; G0641

== ENCOUNTER 2016-10-09 10:51 | Emergency (ER) | payer OTHER ==
[~2016-10-09] VITALS: Ht 180.3 cm; Wt 99.8 kg
[~2016-10-09 10:51] MED LIST: ACET325T16 PO; IBUP200T77 PO; PANT20TA2 PO; TRIA1TAB3 PO
[2016-10-09] MEDS ORDERED: OCTREOTIDE 100 MCG/ML VIAL IV ONE (11:15)
[2016-10-09] MEDS ORDERED: PANTOPRAZOLE SODIUM IV 80 MG in IV NORMAL SALINE 100ML 100 ML IV ONE (11:15)
[2016-10-09] MEDS ORDERED: OCTREOTIDE 500 MCG in IV NORMAL SALINE 100ML 100 ML IV PRN (11:15)
[2016-10-09] MEDS ORDERED: IV NORMAL SALINE 500ML BAG 500 ML IV SCH (11:15)
[2016-10-09] MEDS ORDERED: PANTOPRAZOLE SODIUM IV 80 MG in IV NORMAL SALINE 100ML 100 ML IV SCH (11:15)
[2016-10-09] MEDS ORDERED: CEFTRIAXONE 1GM IVPB FOR OMNI 50 ML IV ONE (11:15)
--- NOTE | 2016-10-09 11:29 | ED.ADGEN ---
Past Medical History Past Medical History: Hepatitis, Kidney Stone, Seizure, Other Additional Past Medical Histor: gi bleed, hepatitits C, heart murmur Past Surgical History: Other Additional Past Surgical Histo: inguinal hernia, bands placed for esophageal varices Alcohol Use: None Drug Use: Methamphetamine Adult General Chief Complaint Chief Complaint: RECTAL BLEED HPI HPI Patient is a 51 year old [man, history of hepatitis C, with known cirrhosis, esophageal varices, history of GI bleed, who presents the emergency department with 1 day of dark tarry stools, no nadege blood, no nausea or vomiting, states he's had 2 stools so far this morning, no vomiting, is complaining of left- sided cramping abdominal pain, he states is consistent with his previous episode of GI bleed. Patient was recently admitted to [facility] with this issue, and received multiple blood transfusions and a scope performed by Dr. Herrera of GI. Patient denies any injuries, any lightheadedness or dizziness, chest pain or short of breath, any fevers or chills. Review of Systems Review of Systems Constitutional: Denies fever or chills. [] Eyes: Denies change in visual acuity. [] HENT: Denies nasal congestion or sore throat. [] Respiratory: Denies cough or shortness of breath. [] Cardiovascular: Denies chest pain or edema. [] GI: Abdominal pain, located in the left upper quadrant, no nausea, no vomiting, positive for dark tarry stools 2. : Denies dysuria. [] Musculoskeletal: Denies back pain or joint pain. [] Integument: Denies rash. [] Neurologic: Denies headache, focal weakness or sensory changes. [] Endocrine: Denies polyuria or polydipsia. [] Lymphatic: Denies swollen glands. [] Psychiatric: Denies depression or anxiety. [] Current Medications Current Medications Current Medications Medications (Trade) Dose Ordered Sig/Katarzyna Start Time Stop Time Status Last Admin Dose Admin Ceftriaxone Sodium (Rocephin 1gm Ivpb For Omni) 50 ml @ 100 mls/hr 1X ONCE 10/09/16 11:15 10/09/16 11:44 DC 10/09/16 11:28 100 MLS/HR Octreotide Acetate 100 mcg 100 mcg 1X ONCE 10/09/16 11:15 10/09/16 11:16 DC 10/09/16 11:34 100 MCG Octreotide Acetate/Sodium Chloride (Sandostatin/Iv Sodium Chloride 0.9% 100ml) 101 ml @ 0 mls/hr CONT PRN 10/09/16 11:15 10/09/16 11:39 5 MLS/HR Pantoprazole Sodium (Protonix Vial) 80 mg 1X ONCE 10/09/16 12:00 10/09/16 12:01 DC 10/09/16 12:04 80 MG Pantoprazole Sodium 80 mg/ Sodium Chloride 100 ml @ 10 mls/hr Q10H 10/09/16 11:15 Cancel Sodium Chloride 500 ml @ 500 mls/hr Q1H 10/09/16 11:15 10/09/16 11:29 500 MLS/HR Allergies Allergies Allergies Coded Allergies Type Severity Reaction Last Updated Verified I S O L A T I O N *CONTACT* Allergy Unknown 10/04/16 Yes No Known Medication Allergies Allergy Unknown 10/04/16 Yes Physical Exam Physical Exam Constitutional: Well developed, well nourished, no acute distress, patient pale in appearance. HENT: Normocephalic, atraumatic, bilateral external ears normal, mucous membranes are pale, oropharynx moist, no oral exudates, nose normal. [] Eyes: PERRLA, EOMI, conjunctiva pale, no discharge. [] Neck: Normal range of motion, no tenderness, supple, no stridor. [] Cardiovascular:Heart rate regular rhythm, 3-5 systolic murmur, S1, S2, no rubs or gallops. [] Lungs & Thorax: Bilateral breath sounds clear to auscultation, no wheezing, rhonchi, rales. No chest tenderness or crepitus. [] Abdomen: Bowel sounds normal, soft, mild initial patient in the left upper quadrant, no rebound, rigidity, no guarding, no masses, no pulsatile masses. [] Skin: Warm, dry, pale, no erythema, no rash. No evidence of bleeding or bruising. [] Back: No tenderness, no CVA tenderness. [] Extremities: No tenderness, no cyanosis, no clubbing, ROM intact, trace pitting pretibial edema bilaterally.] Neurologic: Alert and oriented X 3, normal motor function, normal sensory function, no focal deficits noted. [] Psychologic: Affect normal, judgement normal, mood normal. [] Current Patient Data Vital Signs Vital Signs Date Time Temp Pulse Resp B/P Pulse Ox O2 Delivery O2 Flow Rate FiO2 10/09/16 12:30 62 16 113/68 99 Room Air 10/09/16 11:07 98.5 98.5 Lab Values Laboratory Tests Test 10/09/16 11:30 10/09/16 12:42 White Blood Count 3.5x10^3/uL (4.0-11.0) L Red Blood Count 2.72x10^6/uL (4.30-5.70) L Hemoglobin 8.8g/dL (13.0-17.5) L Hematocrit 25.3% (39.0-53.0) L Mean Corpuscular Volume 93fL (79-100) Mean Corpuscular Hemoglobin 33pg (25-35) Mean Corpuscular Hemoglobin Concent 35g/dL (31-37) Red Cell Distribution Width 17.0% (11.5-14.5) H Platelet Count 175x10^3/uL (140-400) Neutrophils (%) (Auto) 61% (31-73) Lymphocytes (%) (Auto) 25% (24-48) Monocytes (%) (Auto) 8% (0-9) Eosinophils (%) (Auto) 6% (0-3) H Basophils (%) (Auto) 1% (0-3) Neutrophils # (Auto) 2.1x10^3uL (1.8-7.7) Lymphocytes # (Auto) 0.9x10^3/uL (1.0-4.8) L Monocytes # (Auto) 0.3x10^3/uL (0.0-1.1) Eosinophils # (Auto) 0.2x10^3/uL (0.0-0.7) Basophils # (Auto) 0.0x10^3/uL (0.0-0.2) Prothrombin Time 17.5SEC (11.7-14.0) H Prothrombin Time INR 1.5 (0.8-1.1) H PTT 33SEC (24-38) Sodium Level 142mmol/L (136-145) Potassium Level 3.7mmol/L (3.5-5.1) Chloride Level 110mmol/L (98-107) H Carbon Dioxide Level 25mmol/L (21-32) Anion Gap 7 (6-14) Blood Urea Nitrogen 11mg/dL (8-26) Creatinine 1.0mg/dL (0.7-1.3) Estimated GFR (Cockcroft-Gault) 78.5 BUN/Creatinine Ratio 11 (6-20) Glucose Level 105mg/dL (70-99) H Calcium Level 8.2mg/dL (8.5-10.1) L Total Bilirubin 0.6mg/dL (0.2-1.0) Aspartate Amino Transferase (AST) 54U/L (15-37) H Alanine Aminotransferase (ALT) 54U/L (16-63) Alkaline Phosphatase 96U/L (46-116) Troponin I Quantitative < 0.017ng/mL (0.000-0.055) Total Protein 5.7g/dL (6.4-8.2) L Albumin 2.3g/dL (3.4-5.0) L Albumin/Globulin Ratio 0.7 (1.0-1.7) L Lipase 482U/L (73-393) H Urine Collection Type Unknown Urine Color Yellow Urine Clarity Clear Urine pH 6.0 Urine Specific Sheldon <=1.005 Urine Protein Negativemg/dL (NEG-TRACE) Urine Glucose (UA) Negativemg/dL (NEG) Urine Ketones (Stick) Negativemg/dL (NEG) Urine Blood Negative (NEG) Urine Nitrite Negative (NEG) Urine Bilirubin Negative (NEG) Urine Urobilinogen Dipstick 0.2mg/dL (0.2 mg/dL) Urine Leukocyte Esterase Negative (NEG) Urine RBC 0/HPF (0-2) Urine WBC 1-4/HPF (0-4) Urine Bacteria 0/HPF (0-FEW) Laboratory Tests 10/09/16 11:30 Laboratory Tests 10/09/16 11:30 EKG EKG EC: Sinus rhythm, heart rate 63 bpm, upright axis, QTC of 445, GA 142, QRS of 80, no ST elevations or depressions, no evidence of acute ST abnormalities. [] Radiology/Procedures Radiology/Procedures [] [facility] [address] [place], [place] [id number] IMAGING REPORT Signed PATIENT: BLU LUIS ACCOUNT: [id number] : 1965 LOCATION: ER AGE: 51 SEX: M EXAM STATUS: REG ER ORD. PHYSICIAN: MARIZOL ELIZABETH DO REASON: GI bleeding/hx ulcer, pt states lt sided abdomen pain . PROCEDURE: ACUTE ABDOMEN SERIES Abdomen series with chest, 3 views, 10/09/2016: History: Left-sided pain The abdominal gas pattern is unremarkable without evidence of obstruction. No free air is seen in the abdomen. Calcifications in the lateral aspect of the left mid and upper abdomen have been shown to be related to an enlarged spleen. The patient's known gallstone is faintly visualized in the right upper quadrant. A sclerotic focus in the left femoral head is probably a bone island. The heart size and pulmonary vascularity are normal. The lungs are clear. IMPRESSION: 1. Splenomegaly. 2. Cholelithiasis. 3. No acute abdominal abnormality is detected. DICTATED and SIGNED BY: PUNEET UREÑA MD DATE: 10/09/16 1201 CC: MARIZOL ELIZABETH DO; NO PCP ~ Course & Med Decision Making Course & Med Decision Making Pertinent Labs and Imaging studies reviewed. (See chart for details) Patient pale, no further dark bowel movements in the ED at this time. Hemoglobin at 8.8, previously was 8.7 after transfusion. No acute concerning findings identified and imaging, no evidence of acidosis. Patient receiving IV Protonix bolus and drip, octreotide bolus of octreotide drip, along with ceftriaxone, per typical upper GI bleed treatment, IV fluids also initiated in the ED. Blood pressure 1 teens to 120s over 60s and 70s, heart rate in the 70s and 80s, patient is typed and screened, hold off on transfusion at this time, although he is agreeable to receiving transfusion if needed, patient resting comfortably, findings as above discussed with Dr. Guerrier internal medicine, patient accepted to her service as a full admission to the medical telemetry floor for continued management, supportive care, and consultation with GIRona Montes Disclaimer Dragon Disclaimer This electronic medical record was generated, in whole or in part, using a voice recognition dictation system. Departure Impression: Primary Impression: GI bleed Additional Impression: Esophageal varices Disposition: ADMITTED INPATIENT Admitting Physician: Sage Franklin Condition: IMPROVED Problem Qualifiers Primary Impression: GI bleed GI bleed type/associated pathology: robert Qualified Code: K92.1 - MARIZOL Savage DO Oct 09, 2016 11:29
[2016-10-09 11:44] LABS: BASO % 1 % (0-3); EOS % 6 % (0-3); HEMATOCRIT 25.3 % (39.0-53.0); HEMOGLOBIN 8.8 g/dL (13.0-17.5); LYMPH # 0.9 x10^3/uL (1.0-4.8); LYMPH % 25 % (24-48); MEAN CORPUSCULAR HEMOGLOBIN 33 pg (25-35); MEAN CORPUSCULAR HGB CONC 35 g/dL (31-37); MEAN CORPUSCULAR VOLUME 93 fL (79-100); MONO % 8 % (0-9); NEUT % 61 % (31-73); PLATELET COUNT 175 x10^3/uL (140-400); RED BLOOD COUNT 2.72 x10^6/uL (4.30-5.70); WHITE BLOOD COUNT 3.5 x10^3/uL (4.0-11.0)
[2016-10-09 11:52] LABS: CALCIUM 8.2 mg/dL (8.5-10.1); GFR 78.5; POTASSIUM 3.7 mmol/L (3.5-5.1)
[2016-10-09 11:58] LABS: ALBUMIN 2.3 g/dL (3.4-5.0); ALBUMIN/GLOBULIN RATIO 0.7 (1.0-1.7); TOTAL BILIRUBIN 0.6 mg/dL (0.2-1.0); TOTAL PROTEIN 5.7 g/dL (6.4-8.2)
[2016-10-09] MEDS ORDERED: PANTOPRAZOLE IV PUSH 40 MG VIAL. IVP ONE (12:00)
--- NOTE | 2016-10-09 12:06 | RAD ---
Abdomen series with chest, 3 views, 10/09/2016: History: Left-sided pain The abdominal gas pattern is unremarkable without evidence of obstruction. No free air is seen in the abdomen. Calcifications in the lateral aspect of the left mid and upper abdomen have been shown to be related to an enlarged spleen. The patient's known gallstone is faintly visualized in the right upper quadrant. A sclerotic focus in the left femoral head is probably a bone island. The heart size and pulmonary vascularity are normal. The lungs are clear. IMPRESSION: 1. Splenomegaly. 2. Cholelithiasis. 3. No acute abdominal abnormality is detected.
[2016-10-09 12:30] LABS: INR 1.5 (0.8-1.1); PROTHROMBIN TIME PATIENT 17.5 SEC (11.7-14.0)
[2016-10-09 13:06] LABS: BILIRUBIN,URINE NEGATIVE (NEG); GLUCOSE,URINE NEGATIVE (NEG); NITRITE,URINE NEGATIVE (NEG); PROTEIN,URINE NEGATIVE (NEG-TRACE); UROBILINOGEN,URINE 0.2 mg/dL (0.2 mg/dL)
[2016-10-09 13:07] LABS: BACTERIA,URINE 0 /HPF (0-FEW); RBC,URINE 0 /HPF (0-2)
[2016-10-09] MEDS ORDERED: ONDANSETRON PF 4 MG/2 ML VIAL. IV PRN (14:00)
[2016-10-09] MEDS ORDERED: FENTANYL PF 100 MCG/2 ML VIAL. IV PRN (14:00)
[2016-10-09] MEDS ORDERED: IV NORMAL SALINE 1000ML BAG 1,000 ML IV SCH (14:30)
--- NOTE | 2016-10-09 15:22 | PDOC ---
Provider Note Provider Note 23 hr admit and dc summ done,. # [id number] ff up [facility], needs GI tx that or GI cant provide here Dw RN at the facility,. 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
[2016-10-09 16:00] VITALS: BP 136/70
--- NOTE | 2016-10-09 16:14 | ACF ---
Admission Forms Criteria GASTROINTESTINAL BLEEDING Clinical Indications for Inpatient Care (Place 'X' for any and all applicable criteria): Ongoing inpatient care may be indicated for gastrointestinal bleeding with ANY ONE of the following (4)(20)(21)(22)(23)(24): [ ]I. Active bleeding (eg, fresh voluminous blood in emesis or nasogastric aspirate, or per rectum) [ ]II. Hemodynamic instability [ ]III. Anticoagulation therapy or coagulopathy ((eg, advanced liver disease, irreversible anticoagulation) [ ]IV. Ischemic colitis (22) [ ]V. Endoscopy showing arterial bleeding, adherent clot, nonbleeding visible vessel, varices, flat red spots, ulcer size greater than 2 cm, or portal hypertensive gastropathy [ ]. High-risk low platelet count [ ]VII. Anemia requiring inpatient care as indicated by ANY ONE of the following a)[ ] Cognitive impairment b)[ ] Syncope c)[ ] Heart failure d)[ ] Chest pain e)[ ] Dyspnea f)[ ] Other findings suggesting inadequate perfusion (eg, peripheral or myocardial ischemia, end organ dysfunction) [ ]VIII. High-risk low platelet count [X]IX. Suspected variceal cause of bleeding as indicated by ANY ONE of the following(27)(28): a)[ ] Known varices b)[X] Hepatomegaly or splenomegaly c)[ ] Ascites d)[ ] Jaundice or scleral icterus e)[ ] History of liver disease (eg, cirrhosis) f)[ ] Physical findings of portal hypertension (eg, caput medusa) g)[ ] Comorbid disorder indicating risk for portal vein thrombosis (eg , abdominal surgery, sepsis, shock, exchange transfusion, prior umbilical vein catheterization) Extended stay may be needed until ALL of the following are present(20)(38)(47): [ ]a) Hemodynamic stability [ ]b) No evidence of active bleeding (eg, stable Hematocrit) [ ]c) Platelet count, prothrombin time, and partial thromboplastin time acceptable for next level of care [ ]d) Surgical or other acute intervention not needed [ ]e) Oral hydration and diet tolerated The original [facility] content created by Yamel Vizcarra has been revised. The portions of the content which have been revised are identified through the use of italic text or in bold, and Yamel Vizcarra has neither reviewed nor approved the modified material. All other unmodified content is copyright [facility]. Please see references footnoted in the original [facility] edition 2016 Admission Criteria Met?: Yes STEVE RICHTER. Oct 09, 2016 16:13
--- NOTE | 2016-10-09 22:29 | SSS ---
ADMIT DATE: 10/09/2016 HISTORY OF PRESENT ILLNESS: The patient is a 51-year-old, male, who was just discharged here on 10/05/2016 by colleagues of [facility]. He was admitted here for a few days for syncope secondary to hypovolemia from GI bleed, acute blood loss anemia secondary to varices esophageal and gastric, status post esophageal varices banding on October 03. He is currently incarcerated. History of hepatitis C, tattoos on the chest. He was sent in by staff again today at [facility] because of melena x 2 today. Hemoglobin is 8.8. Hemodynamically stable. Vital signs are stable. Blood pressure 128/76, heart rate in the 60s. Discussed with GI doctor. The patient has been seen by the GI service and they did recommend last admission because of the significant esophageal varices that either might need TIPS or preferentially a special kind of glue that only does. Apparently, this was not carried over at the half-way or ____. I did speak with the nurse from the half-way and relayed the information that he needs , that there is nothing more we can do for him here. RN relays to me that the doctor knew about [facility], but not to the full extent of it that he needs a special kind of glue, etc., that is done in . Hence, I have discussed with the ER MD, GI doctor, GI service, LAST SORTER, the patient himself, guards at bedside, and RN over at the half-way facility, that the patient will not be accepted admission here as he is currently hemodynamically stable; will need to go to for his needs for this acute bleeding. PAST MEDICAL HISTORY: Hep C, incarcerated, GERD. PAST SURGICAL HISTORY: Esophageal varices banding on October 03. ALLERGIES: None. SOCIAL HISTORY: No smoking. Likely alcohol drinker before getting into half-way. FAMILY HISTORY: Unknown. REVIEW OF SYSTEMS: All 14-point systems reviewed, positive only for melena. The rest is negative. PHYSICAL EXAMINATION: GENERAL: Awake, alert, oriented x 3. Not in acute respiratory distress. HEENT: Atraumatic. LUNGS: Clear to auscultation bilaterally. CARDIOVASCULAR: Normal rate and rhythm. No murmurs, rubs, or gallops. ABDOMEN: Obese, soft, slightly tender on deep palpation of the epigastric area. EXTREMITIES: Negative edema. Pulses were full and equal. No pallor, cyanosis, ____ SKIN: Unremarkable. NEUROLOGIC: Unremarkable. PSYCHIATRIC: Unremarkable. ASSESSMENT: 1. Melena, history of esophageal bleed, esophageal varices, status post banding on October 03. 2. Incarcerated. 3. Syncope secondary to hypovolemia on last admission, resolved. 4. History of hepatitis C. 5. [id number] protein calorie malnutrition. 6. Tattoo on the chest. 7. Gastroesophageal reflux disease. PLAN OF CARE: Continue PPI, back to half-way facility, and follow up with [facility], not here as he needs higher level of care than what [facility] is able to offer. COURSE: The patient stayed at the ER only for a few hours. I was able to do all this at the ER level. Discussed with multiple people above. Time doing, etc., paperwork, discussing with many people involved 45 minutes cumulative. CHRISTIANO ROCHA MD DR: /nts JOB#: [id number] / [id number]
--- NOTE | 2016-10-10 07:29 | EKG ---
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
== END 2016-10-09 16:21 | disposition home or self-care (01) ==
LOC: EEVIPCON 10:51 → ER 10:55 → ED HOLD 13:08 → UNDOADMIN 13:08 → ED HOLD 16:21
DX: K92.2 Gastrointestinal hemorrhage, unspecified (principal); I85.01 Esophageal varices with bleeding; Z87.442 Personal history of urinary calculi; Z98.890 Other specified postprocedural states; F15.10 Other stimulant abuse, uncomplicated; Z86.19 Personal history of other infectious and parasitic diseases; Z91.041 Radiographic dye allergy status
CPT/HCPCS: 36415; 74022; 80053; 81001; 83690; 84484; 85027; 85610; 85730; 86850; 86900; 86901; 93005; 96365; 96366; 96374; 96375; 99285; C9113; J0690; J2354; J7040